=== PATIENT | female | born 1950 | race Caucasian/White ===

== ENCOUNTER 2024-10-03 14:19 | Observation (INO) ==
--- NOTE | 2024-10-03 14:39 | Emergency Department Note ---
Impression & Plan Stroke-like symptom, Amnesia ED Provider Note NAME: MARCE FRANCO AGE: 74 SEX: F : 1950 ARRIVES VIA: Walk-In INFORMANT: Patient, the patient's significant other ED PROVIDER(S): Mando To DO CHIEF COMPLAINT: Strokelike symptoms HPI: The patient is a 74-year-old female who presented to the emergency department with her significant other for an evaluation of possible strokelike symptoms. The significant other gives most of the history. He states that they were in [place] earlier today going out for lunch. He states that approximately 1 PM the patient started having problems with memory. She could not remember if they went out to eat. She actually has no memory of anything from this morning. She does have memory from last evening. She has no focal neurologic deficits. She has no slurred speech or headache. She does not take any blood thinners. She was made a stroke alert from triage by the nursing staff. ROS: See above HPI for pertinent positives & negatives. A total of 10 systems reviewed and were otherwise negative. PAST MEDICAL HISTORY: See Below PAST SURGICAL HISTORY: See Below FAMILY HISTORY: See Below SOCIAL HISTORY: See Below HOME MEDICATIONS: See Below ALLERGIES: See Below VITALS: See Below PHYSICAL EXAMINATION: GENERAL: Patient is awake alert in no acute distress patient is resting comfortably and showing no signs of anxiety EYES: The conjunctivae are clear. The pupils are round and reactive. EARS, NOSE, MOUTH AND THROAT: The nose is without any evidence of any deformity. NECK: The neck is nontender and supple. RESPIRATORY: Normal respiratory effort is noted there is no evidence of wheezing rhonchi or rales CARDIOVASCULAR: Regular rate and rhythm noted there no murmurs rubs or gallops normal S1 normal S2. GASTROINTESTINAL: The abdomen is soft. Abdomen is nontender. MUSCULOSKELETAL/EXTREMITIES: There is no evidence of gross deformity full range of motion is noted in the hips and shoulders. SKIN: There is no obvious evidence of any rash. There are no petechiae, pallor or cyanosis noted. NEUROLOGIC: Patient is awake alert and oriented to person place and situation. She is confused to time. She does not remember what she did this morning. Strength is symmetric patellar reflexes are 2+ bilaterally MEDICAL DECISION MAKING: The patient is a 74-year-old female who presented to the emergency department for confusion and amnesia. The patient was made a stroke alert in triage. On my evaluation the patient did not have any focal neurologic deficits but had repetitive questioning and did not appear to remember anything that happened today. This is a change in her mental status according to her daughter who is a physician as well as her significant other. The patient did have a similar episode approximately 4 years ago. The patient did not have any acute abnormality on CT the brain. I discussed the patient's laboratory and radiographic studies with her and her . I discussed her condition with the telestroke neurologist from [facility]. At this time no TNK was recommended. I discussed her condition with the on-call [facility] hospitalist group. They have agreed to evaluate the patient in the emergency department for further management and disposition. Triage Nursing notes reviewed. Prior medical records reviewed Vital Signs: reviewed and remarkable for elevated blood pressure. Differential diagnosis: Infection, hypoglycemia, electrolyte abnormalities, overdose, toxicologic, cardiac sources, intracerebral event, neurologic, trauma, as well as other pathologies. ER treatment provided: See below Diagnostics interpreted by me: ECG: EKG was obtained in the emergency department. My interpretation is normal sinus rhythm at 70 bpm. There is no ectopy. There is no acute ST segment abnormalities noted. This was compared to a tracing from March 11, 2024. No changes were noted. Cardiac Monitoring: An order was placed for continuous cardiac monitoring. The monitor shows a rate of 70 bpm with sinus rhythm. Laboratory studies: As stated above and show below. Imaging studies: See below. Radiographic imaging was reviewed by myself Consultation(s): I discussed this case with Dr. English who is on for the telestroke neurology group. I discussed this case with Tiffany who is on for the [facility] hospitalist group. Past Med/Surg History Problem List TIA (transient ischemic attack) Aneurysm, ascending aorta SVT (supraventricular tachycardia) Abnormal EKG Preoperative cardiovascular examination Surgical History History of bowel resection S/P removal of parathyroid gland Family History Mother Dementia Neuropathy Father Afib Sister Seizure Social History Smoking Status: Never smoker Hx Alcohol Use: Yes Alcohol Intake Frequency Comment: "occasionally" Hx Substance Use: No Preferred Language: Ghanaian marital status: Feels Safe at Home: Yes Allergies Allergies Allergy/AdvReac Type Severity Reaction Status Date / Time bee venom protein (honey bee) Allergy Severe Inner Ear Unverified 03/11/24 09:50 Problems/Dizziness doxycycline Allergy Unknown Verified 03/11/24 09:50 Penicillins Allergy Unknown Rash Verified 03/11/24 09:50 Sulfa (Sulfonamide Allergy Unknown Verified 03/11/24 09:50 Antibiotics) Home Meds Home Medications Medication Instructions Recorded Confirmed epinephrine 0.3 mg/0.3 mL 0.3 mg IM ONCE PRN Allergic 10/03/21 10/03/24 injection, auto-injector Reactions losartan 50 mg tablet 50 mg PO BID 10/22/23 10/03/24 meloxicam 15 mg tablet 15 mg PO DAILY PRN Pain 03/11/24 10/03/24 amoxicillin 875 mg-potassium 1 tab PO BID 10/03/24 10/03/24 clavulanate 125 mg tablet Results & Data (ED) Vital Signs Vital Signs - 24 hr 10/03/24 14:20 10/03/24 14:42 10/03/24 14:45 Temperature 36 C L Temperature Source Temporal Artery Scan Pulse Rate 82 76 Pulse Rate [Apical] 79 Pulse Rate from SpO2 Sensor 77 Pulse Rhythm Regular Pulse Rhythm [Apical] Regular Pulse Strength Normal Pulse Strength [Apical] Normal Respiratory Rate 20 22 16 Respiratory Effort / Characteristics Non-Labored Spontaneous Non-Labored Spontaneous Respiratory Depth Normal Normal Respiratory Pattern Regular Blood Pressure 167/92 H 124/100 Blood Pressure [Left Arm] 155/101 H Blood Pressure Mean 117 108 Blood Pressure Mean [Left Arm] 119 Blood Pressure Position Sitting Blood Pressure Position [Left Arm] Sitting Pulse Oximetry 99 96 96 Oxygen Delivery Method Room Air Room Air Sepsis Recent Fever Within 48 Hours No Sepsis New/Unexplained Change in Mental Status N/A Sepsis Action Taken by Nursing No Action Required 10/03/24 14:51 10/03/24 14:56 10/03/24 15:00 Temperature Temperature Source Pulse Rate 73 75 Pulse Rate [Apical] 67 Pulse Rate from SpO2 Sensor 73 74 Pulse Rhythm Pulse Rhythm [Apical] Regular Pulse Strength Pulse Strength [Apical] Normal Respiratory Rate 21 20 21 Respiratory Effort / Characteristics Non-Labored Spontaneous Respiratory Depth Normal Respiratory Pattern Regular Blood Pressure 155/101 H 153/92 H Blood Pressure [Left Arm] 143/90 H Blood Pressure Mean 119 112 Blood Pressure Mean [Left Arm] 107 Blood Pressure Position Blood Pressure Position [Left Arm] Sitting Pulse Oximetry 97 95 96 Oxygen Delivery Method Room Air Sepsis Recent Fever Within 48 Hours Sepsis New/Unexplained Change in Mental Status Sepsis Action Taken by Nursing 10/03/24 15:12 10/03/24 15:21 10/03/24 16:01 Temperature Temperature Source Pulse Rate 67 66 70 Pulse Rate [Apical] Pulse Rate from SpO2 Sensor 68 67 Pulse Rhythm Pulse Rhythm [Apical] Pulse Strength Pulse Strength [Apical] Respiratory Rate 19 18 Respiratory Effort / Characteristics Respiratory Depth Respiratory Pattern Blood Pressure 143/90 H 155/99 H Blood Pressure [Left Arm] Blood Pressure Mean 107 117 Blood Pressure Mean [Left Arm] Blood Pressure Position Blood Pressure Position [Left Arm] Pulse Oximetry 97 93 Oxygen Delivery Method Sepsis Recent Fever Within 48 Hours Sepsis New/Unexplained Change in Mental Status Sepsis Action Taken by Intermediate Medications Current Medication List: was personally reviewed by me Laboratory Data Attestation: I reviewed the patient's lab results. 10/03/24 14:29 10/03/24 14:29 Lab Results 10/03/24 10/03/24 10/03/24 Range/Units 14:27 14:29 14:32 WBC 8.24 (4.8-10.8) K/ul RBC 4.40 (4.20-5.40) M/uL Hgb 14.3 (12.0-16.0) g/dl POC Hgb 14.6 (12.0-16.0) g/dl Hct 42.1 (37.0-47.0) % POC Hct 43 (37-47) % MCV 95.7 (80.0-100.0) fL MCH 32.5 (25.0-34.0) pg MCHC 34.0 (32.0-36.0) g/dL RDW Std Deviation 42.6 (36.4-46.3) fL RDW Coeff of [place] 12.0 (11.5-14.5) % Plt Count 287 (130-400) K/uL MPV 8.6 L (9.4-12.4) fL Immature Gran % (Auto) 0.4 % Neut % (Auto) 65.7 % Lymph % (Auto) 23.2 % [place] % (Auto) 8.9 % Eos % (Auto) 1.3 % Baso % (Auto) 0.5 % Neut # (Auto) 5.42 (1.40-6.50) K/uL Lymph # (Auto) 1.91 (1.20-3.40) K/uL [place] # (Auto) 0.73 H (0.11-0.59) K/uL Eos # (Auto) 0.11 (0.00-0.50) K/uL Baso # (Auto) 0.04 (0.00-0.20) K/uL Immature Gran # (Auto) 0.03 (0.01-0.20) K/uL PT 10.3 (9.0-12.0) Seconds INR 0.9 (0.9-1.1) APTT 34 H (21-31) Seconds PTT Ratio 1.3 POC Sodium 141 (135-144) mmol/L Sodium 141 (136-145) mmol/L POC Potassium 3.7 (3.3-5.0) mmol/L Potassium 3.7 (3.5-5.1) mmol/L POC Chloride 103 (101-112) mmol/L Chloride 105 (98-107) mmol/L Carbon Dioxide 28 (21-32) mmol/L POC Total CO2 24 (24-31) mmol/L Anion Gap 8 (3-11) POC Anion Gap 19.0 (16-25) mmol/L POC BUN 24 H (7-18) mg/dl BUN 26 H (6-23) mg/dl Creatinine 0.78 (0.6-1.2) mg/dl POC Creatinine 0.8 (0.6-1.3) mg/dl Est Cr Clr Drug Dosing 65.0 ml/min eGFR 80.15 BUN/Creatinine Ratio 33.3 H (10-20) Glucose 91 (70-99(Fasting)) mg/dl POC Glucose 92 (70-99) mg/dl POC Glucose (other) 93 (70-99) mg/dl Calcium 9.4 (8.6-10.3) mg/dl POC Ioniz Calcium Ton 1.18 (1.12-1.32) mmol/l Magnesium 1.9 (1.7-2.4) mg/dl Total Bilirubin 0.6 (0.2-1.0) mg/dl AST 30 (13-39) U/L ALT 24 (7-52) U/L Alkaline Phosphatase 60 (34-104) U/L Troponin I High Sens 4.5 (0-14) pg/ml Total Protein 7.2 (6.0-8.3) gm/dl Albumin 4.4 (3.4-5.0) gm/dl Globulin 2.8 (2.5-4.0) gm/dl Albumin/Globulin Ratio 1.6 (0.9-2) Administered Medications Discontinued Medications Ioversol (Optiray 320 125ml) 120 ml IV ONCE ONE Stop: 10/03/24 14:45 Last Admin: 10/03/24 14:44 Dose: 120 ml Documented By: MATTHEW Lorazepam (Lorazepam 2 Mg/1 Ml Vial) 0.5 mg IV NOW STA Stop: 10/03/24 14:54 Last Admin: 10/03/24 15:05 Dose: 0.5 mg Documented By: KARSTEN Imaging Data Attestation: I personally reviewed and interpreted this imaging study as follows: My Impression: 1 chest x-ray was obtained in the emergency department. My interpretation is no free air or definite filtrate, final report below. CT the brain was obtained in the emergency department. My interpretation is no intracranial hemorrhage or mass effect, final report below. Radiologist's Impression: Chest X-Ray 10/03/24 14:26 EXAM: Radiograph of the Chest 1 View INDICATION: Stroke alert TECHNIQUE: Frontal view of the chest. COMPARISON: 11/15/2021 FINDINGS: Lungs and pleural spaces: No consolidation or pulmonary edema. No pleural effusion or pneumothorax. Heart: Shape and configuration within normal limits allowing for technique. Mediastinum: Normal contour. Bones/joints: No fracture, erosion or dislocation. Soft tissues: No abnormality noted. No radiopaque foreign body noted. Vasculature: Stable ectatic aorta. Upper abdomen: No abnormality noted. IMPRESSION: No acute cardiopulmonary disease. ACT 112: Negative or not required by law. Electronically signed by Natasha Fry 10-03-2024 3:[address] 10/03/24 14:26 EXAM: CT Head Without Intravenous Contrast INDICATION: Stroke alert TECHNIQUE: Axial computed tomography images of the head/brain without intravenous contrast. Sagittal and/or coronal reformats are provided. Sagittal and coronal reformatted images were created and reviewed. This CT exam was performed using one or more of the following dose reduction techniques: automated exposure control, adjustment of the mA and/or kV according to patient size, and/or use of iterative reconstruction technique. COMPARISON: No relevant prior studies available. FINDINGS: Limitations: None. Brain and extra-axial spaces: No abnormality noted. No hemorrhage. No significant white matter disease. No edema. No ventriculomegaly. Bones/joints: No acute changes. Soft tissues: No significant abnormality noted. Vasculature: No acute abnormality noted. Sinuses: No layering fluid in the visualized portions of the paranasal sinuses. Mastoid air cells: No mastoid effusion. Orbits: No significant abnormality noted. IMPRESSION: No abnormality noted. Findings phoned to the charge nurse at 2:50 PM 10/03/2024. ACT 112: Negative or not required by law. Electronically signed by Natasha Fry 10-03-2024 2:54 PM Head CTA 10/03/24 14:26 EXAM: CT Angiography Head and Neck With Intravenous Contrast INDICATION: Stroke alert. Short-term memory loss. Confusion. TECHNIQUE: [place]/head and neck CT angiography protocol performed with intravenous contrast. Sagittal and coronal reformatted images were created and reviewed. This CT exam was performed using one or more of the following dose reduction techniques: automated exposure control, adjustment of the mA and/or kV according to patient size, and/or use of iterative reconstruction technique. MIP reconstructed images were created and reviewed. CONTRAST: 120ml of Optiray 320 was administered intravenously. COMPARISON: None. FINDINGS: HEAD: Right anterior cerebral artery: No abnormality noted. No occlusion or significant stenosis. Anterior communicating artery is present. No aneurysm. Right middle cerebral artery: No abnormality noted. No occlusion or significant stenosis. No aneurysm. Right posterior cerebral artery: No abnormality noted. No occlusion or significant stenosis. No aneurysm. Right intracranial internal carotid artery: Very minimal calcific plaque in the intracranial right internal carotid artery. No stenosis, aneurysm or dissection. Right intracranial vertebral artery: No abnormality noted. No significant stenosis. No dissection or occlusion. Left anterior cerebral artery: No abnormality noted. No occlusion or significant stenosis. No aneurysm. Left middle cerebral artery: No abnormality noted. No occlusion or significant stenosis. No aneurysm. Left posterior cerebral artery: No abnormality noted. No occlusion or significant stenosis. No aneurysm. Left intracranial internal carotid artery: Very minimal calcific plaque in the intracranial left internal carotid artery. No stenosis, aneurysm or dissection. Left intracranial vertebral artery: No abnormality noted. No significant stenosis. No dissection or occlusion. Basilar artery: No abnormality noted. No occlusion or significant stenosis. No aneurysm. Other vasculature: No vascular malformation. NECK: Right common carotid artery: No abnormality noted. No significant stenosis. No dissection or occlusion. Right extracranial internal carotid artery: No abnormality noted. No significant stenosis. No dissection or occlusion. Right external carotid artery: No abnormality noted. No occlusion. Right extracranial vertebral artery: No abnormality noted. No significant stenosis. No dissection or occlusion. Left common carotid artery: No abnormality noted. No significant stenosis. No dissection or occlusion. Left extracranial internal carotid artery: No abnormality noted. No significant stenosis. No dissection or occlusion. Left external carotid artery: No abnormality noted. No occlusion. Left extracranial vertebral artery: No abnormality noted. No significant stenosis. No dissection or occlusion. Lung apices: No significant abnormality noted. HEAD and NECK: Bones/joints: There is mild spondylosis and uncal spurring with associated foraminal mild ventral canal stenosis at C6-C7. No acute osseous abnormality. Soft tissues: No abnormality noted. CAROTID STENOSIS REFERENCE USING NASCET CRITERIA: % ICA stenosis = (1 - narrowest ICA diameter/diameter of distal cervical ICA) x 100. Mild - <50% stenosis. Moderate - 50-69% stenosis. Severe - 70-94% stenosis. Near occlusion - 95-99% stenosis. Occluded - 100% stenosis. IMPRESSION: No angiographic abnormality in the head or neck. ACT 112: Negative or not required by law. Electronically signed by Natasha Fry 10-03-2024 2:57 PM Neck CTA 10/03/24 14:26 EXAM: CT Angiography Head and Neck With Intravenous Contrast INDICATION: Stroke alert. Short-term memory loss. Confusion. TECHNIQUE: [place] of [place]/head and neck CT angiography protocol performed with intravenous contrast. Sagittal and coronal reformatted images were created and reviewed. This CT exam was performed using one or more of the following dose reduction techniques: automated exposure control, adjustment of the mA and/or kV according to patient size, and/or use of iterative reconstruction technique. MIP reconstructed images were created and reviewed. CONTRAST: 120ml of Optiray 320 was administered intravenously. COMPARISON: None. FINDINGS: HEAD: Right anterior cerebral artery: No abnormality noted. No occlusion or significant stenosis. Anterior communicating artery is present. No aneurysm. Right middle cerebral artery: No abnormality noted. No occlusion or significant stenosis. No aneurysm. Right posterior cerebral artery: No abnormality noted. No occlusion or significant stenosis. No aneurysm. Right intracranial internal carotid artery: Very minimal calcific plaque in the intracranial right internal carotid artery. No stenosis, aneurysm or dissection. Right intracranial vertebral artery: No abnormality noted. No significant stenosis. No dissection or occlusion. Left anterior cerebral artery: No abnormality noted. No occlusion or significant stenosis. No aneurysm. Left middle cerebral artery: No abnormality noted. No occlusion or significant stenosis. No aneurysm. Left posterior cerebral artery: No abnormality noted. No occlusion or significant stenosis. No aneurysm. Left intracranial internal carotid artery: Very minimal calcific plaque in the intracranial left internal carotid artery. No stenosis, aneurysm or dissection. Left intracranial vertebral artery: No abnormality noted. No significant stenosis. No dissection or occlusion. Basilar artery: No abnormality noted. No occlusion or significant stenosis. No aneurysm. Other vasculature: No vascular malformation. NECK: Right common carotid artery: No abnormality noted. No significant stenosis. No dissection or occlusion. Right extracranial internal carotid artery: No abnormality noted. No significant stenosis. No dissection or occlusion. Right external carotid artery: No abnormality noted. No occlusion. Right extracranial vertebral artery: No abnormality noted. No significant stenosis. No dissection or occlusion. Left common carotid artery: No abnormality noted. No significant stenosis. No dissection or occlusion. Left extracranial internal carotid artery: No abnormality noted. No significant stenosis. No dissection or occlusion. Left external carotid artery: No abnormality noted. No occlusion. Left extracranial vertebral artery: No abnormality noted. No significant stenosis. No dissection or occlusion. Lung apices: No significant abnormality noted. HEAD and NECK: Bones/joints: There is mild spondylosis and uncal spurring with associated foraminal mild ventral canal stenosis at C6-C7. No acute osseous abnormality. Soft tissues: No abnormality noted. CAROTID STENOSIS REFERENCE USING NASCET CRITERIA: % ICA stenosis = (1 - narrowest ICA diameter/diameter of distal cervical ICA) x 100. Mild - <50% stenosis. Moderate - 50-69% stenosis. Severe - 70-94% stenosis. Near occlusion - 95-99% stenosis. Occluded - 100% stenosis. IMPRESSION: No angiographic abnormality in the head or neck. ACT 112: Negative or not required by law. Electronically signed by Natasha Fry 10-03-2024 2:57 PM Discharge Plan Visit Data Chief Complaint: TIA Symptoms Stated Complaint: MEMORY LOSS, EYE WEAKNESS, CONFUSION ED Provider: Mando To Prescriptions Prescriptions: No Action epinephrine 0.3 mg/0.3 mL auto-injector 0.3 mg IM ONCE PRN (Reason: Allergic Reactions) Rx Instructions: for 2 doses losartan 50 mg tablet 50 mg PO BID Rx Instructions: filled 09/10 90 day supply amoxicillin-pot clavulanate 875-125 mg tablet 1 tab PO BID Rx Instructions: filled 10/01 10 day supply meloxicam 15 mg tablet 15 mg PO DAILY PRN (Reason: Pain) Rx Instructions: last filled 05/11/24 30 day supply
[2024-10-03] MEDS: OPTIRAY 320 125ml IV ONE (14:44)
[2024-10-03 14:45] LABS: iSTAT Creatinine 0.8 mg/dl (0.6-1.3); iSTAT Hemoglobin 14.6 g/dl (12.0-16.0); iSTAT Ionized Calcium 1.18 mmol/l (1.12-1.32); iSTAT Potassium 3.7 mmol/L (3.3-5.0)
[2024-10-03 14:46] LABS: Basophils # (auto) 0.04 K/uL (0.00-0.20); Basophils % (auto) 0.5 %; Eosinophils # (auto) 0.11 K/uL (0.00-0.50); Eosinophils % (auto) 1.3 %; Hematocrit (blood only) 42.1 % (37.0-47.0); Hemoglobin 14.3 g/dl (12.0-16.0); Immature Granulocytes # (auto) 0.03 K/uL (0.01-0.20); Immature Granulocytes % (auto) 0.4 %; Lymphocytes # (auto) 1.91 K/uL (1.20-3.40); Lymphocytes % (auto) 23.2 %; Mean Corpuscular Hemoglobin 32.5 pg (25.0-34.0); Mean Corpuscular Volume 95.7 fL (80.0-100.0); Mean Platelet Volume 8.6 fL (9.4-12.4); Monocytes # (auto) 0.73 K/uL (0.11-0.59); Monocytes % (auto) 8.9 %; Neutrophils # (auto) 5.42 K/uL (1.40-6.50); Neutrophils % (auto) 65.7 %; Platelet Count 287 K/uL (130-400); RDW Standard Deviation 42.6 fL (36.4-46.3); White Blood Count 8.24 K/ul (4.8-10.8)
--- NOTE | 2024-10-03 14:54 | CT Scan Report ---
EXAM: CT Head Without Intravenous Contrast INDICATION: Stroke alert TECHNIQUE: Axial computed tomography images of the head/brain without intravenous contrast. Sagittal and/or coronal reformats are provided. Sagittal and coronal reformatted images were created and reviewed. This CT exam was performed using one or more of the following dose reduction techniques: automated exposure control, adjustment of the mA and/or kV according to patient size, and/or use of iterative reconstruction technique. COMPARISON: No relevant prior studies available. FINDINGS: Limitations: None. Brain and extra-axial spaces: No abnormality noted. No hemorrhage. No significant white matter disease. No edema. No ventriculomegaly. Bones/joints: No acute changes. Soft tissues: No significant abnormality noted. Vasculature: No acute abnormality noted. Sinuses: No layering fluid in the visualized portions of the paranasal sinuses. Mastoid air cells: No mastoid effusion. Orbits: No significant abnormality noted. IMPRESSION: No abnormality noted. Findings phoned to the charge nurse at 2:50 PM 10/03/2024. ACT 112: Negative or not required by law. Electronically signed by Natasha Fry 10-03-2024 2:54 PM
--- NOTE | 2024-10-03 14:58 | CT Scan Report ---
EXAM: CT Angiography Head and Neck With Intravenous Contrast INDICATION: Stroke alert. Short-term memory loss. Confusion. TECHNIQUE: [place] [facility]/head and neck CT angiography protocol performed with intravenous contrast. Sagittal and coronal reformatted images were created and reviewed. This CT exam was performed using one or more of the following dose reduction techniques: automated exposure control, adjustment of the mA and/or kV according to patient size, and/or use of iterative reconstruction technique. MIP reconstructed images were created and reviewed. CONTRAST: 120ml of Optiray 320 was administered intravenously. COMPARISON: None. FINDINGS: HEAD: Right anterior cerebral artery: No abnormality noted. No occlusion or significant stenosis. Anterior communicating artery is present. No aneurysm. Right middle cerebral artery: No abnormality noted. No occlusion or significant stenosis. No aneurysm. Right posterior cerebral artery: No abnormality noted. No occlusion or significant stenosis. No aneurysm. Right intracranial internal carotid artery: Very minimal calcific plaque in the intracranial right internal carotid artery. No stenosis, aneurysm or dissection. Right intracranial vertebral artery: No abnormality noted. No significant stenosis. No dissection or occlusion. Left anterior cerebral artery: No abnormality noted. No occlusion or significant stenosis. No aneurysm. Left middle cerebral artery: No abnormality noted. No occlusion or significant stenosis. No aneurysm. Left posterior cerebral artery: No abnormality noted. No occlusion or significant stenosis. No aneurysm. Left intracranial internal carotid artery: Very minimal calcific plaque in the intracranial left internal carotid artery. No stenosis, aneurysm or dissection. Left intracranial vertebral artery: No abnormality noted. No significant stenosis. No dissection or occlusion. Basilar artery: No abnormality noted. No occlusion or significant stenosis. No aneurysm. Other vasculature: No vascular malformation. NECK: Right common carotid artery: No abnormality noted. No significant stenosis. No dissection or occlusion. Right extracranial internal carotid artery: No abnormality noted. No significant stenosis. No dissection or occlusion. Right external carotid artery: No abnormality noted. No occlusion. Right extracranial vertebral artery: No abnormality noted. No significant stenosis. No dissection or occlusion. Left common carotid artery: No abnormality noted. No significant stenosis. No dissection or occlusion. Left extracranial internal carotid artery: No abnormality noted. No significant stenosis. No dissection or occlusion. Left external carotid artery: No abnormality noted. No occlusion. Left extracranial vertebral artery: No abnormality noted. No significant stenosis. No dissection or occlusion. Lung apices: No significant abnormality noted. HEAD and NECK: Bones/joints: There is mild spondylosis and uncal spurring with associated foraminal mild ventral canal stenosis at C6-C7. No acute osseous abnormality. Soft tissues: No abnormality noted. CAROTID STENOSIS REFERENCE USING NASCET CRITERIA: % ICA stenosis = (1 - narrowest ICA diameter/diameter of distal cervical ICA) x 100. Mild - <50% stenosis. Moderate - 50-69% stenosis. Severe - 70-94% stenosis. Near occlusion - 95-99% stenosis. Occluded - 100% stenosis. IMPRESSION: No angiographic abnormality in the head or neck. ACT 112: Negative or not required by law. Electronically signed by Natasha Fry 10-03-2024 2:57 PM
[2024-10-03 15:02] LABS: Albumin Globulin Ratio 1.6 (0.9-2); Albumin Level 4.4 gm/dl (3.4-5.0); BUN Creatinine Ratio 33.3 (10-20); Bilirubin,Total 0.6 mg/dl (0.2-1.0); Calcium 9.4 mg/dl (8.6-10.3); Globulin 2.8 gm/dl (2.5-4.0); Magnesium 1.9 mg/dl (1.7-2.4); Potassium 3.7 mmol/L (3.5-5.1); Total Protein 7.2 gm/dl (6.0-8.3)
[2024-10-03] MEDS: LORazepam 2 MG/1 ML VIAL IV STA (15:05)
[2024-10-03 15:08] LABS: Troponin I High Sensitivity 4.5 pg/ml (0-14)
[2024-10-03 15:32] LABS: INR 0.9 (0.9-1.1); Partial Thromboplastin Ratio 1.3; Partial Thromboplastin Time 34 Seconds (21-31); Prothrombin Time 10.3 Seconds (9.0-12.0)
--- NOTE | 2024-10-03 15:37 | XRay Report ---
EXAM: Radiograph of the Chest 1 View INDICATION: Stroke alert TECHNIQUE: Frontal view of the chest. COMPARISON: 11/15/2021 FINDINGS: Lungs and pleural spaces: No consolidation or pulmonary edema. No pleural effusion or pneumothorax. Heart: Shape and configuration within normal limits allowing for technique. Mediastinum: Normal contour. Bones/joints: No fracture, erosion or dislocation. Soft tissues: No abnormality noted. No radiopaque foreign body noted. Vasculature: Stable ectatic aorta. Upper abdomen: No abnormality noted. IMPRESSION: No acute cardiopulmonary disease. ACT 112: Negative or not required by law. Electronically signed by Natasha Fry 10-03-2024 3:30 PM
[2024-10-03] MEDS: ASPIRIN 81 MG CHEW PO STA (16:08)
[2024-10-03 16:09] LABS: Appearance Urine Clear (Clear); Bacteria Urine Automated None Seen (None Seen); Bilirubin Urine Negative (Negative); Blood Urine 2+ (Negative); Cast Urine Automated 0-2 /lpf (0-2); Color Urine Yellow; Epithelial Cell Urine Auto 0-2 /hpf (0-2); Glucose Urine UA Negative (Negative); Ketones Urine Trace (Negative); Leukocyte Esterase Urine Negative (Negative); Nitrite Urine Negative (Negative); Protein Urine Negative (Negative); RBC Urine Automated >20 /hpf (0-2); Specific Gravity Urine 1.031 (1.000-1.030); Urobilinogen Urine Negative (Negative); WBC Urine Automated 0-5 /hpf (0-5)
--- NOTE | 2024-10-03 16:23 | History & Physical Report ---
Date of Service October 03, 2024 Assessment & Plan (1) Amnesia: (2) Essential hypertension: (3) Stroke-like symptom: Plan This is a 74 y/o female with HTN, prior TIA, and other history as outlined below who presented to the ED today with acute onset of amnesia so stroke alert was called. Initial work-up in the ED including CT head/CTA head and neck was negative. Telestroke evaluation did not recommend TNK but did recommend MRI and addition of aspirin so patient was referred for admission. - Observe on med telemetry overnight - MRI brain - Neuro checks per protocol - Add aspirin as recommended - of note, pt had transient rectal bleeding when trialed three years ago; however, with second neurologic event, will cautiously retry aspirin and closely monitor for evidence of bleeding. - Consult neurology - Labs in the AM - CBC, BMP, lipid panel, A1c - Check ECHO Pt seen and reviewed with collaborating physician, Dr. Bonds. Plan of care discussed and as outlined above. Code status: full code DVT prophylaxis: Lovenox Observe in med telemetry. If MRI negative and no neurologic events, hopeful for d/c tomorrow. Alison Finney PA-C History of Present Illness Chief Complaint: "stroke alert" Primary Care Provider: Odalis Burnett This is a 74 y/o female with HTN, prior TIA, and other history as outlined below who presented to the ED today with acute onset of amnesia so stroke alert was called. History obtained from patient and her family as well as from review of outpatient neurology note from 2020. Pt apparently had the abrupt onset of amnesia around 1 pm today. She had gone to visit her father this morning who is on hospice then went out to lunch with friends, but suddenly had no recollection of anything that had happened this morning though was able to recall last night. Initially, her family noted that she also had issues with recalling the events of the last week, but this seems to be improving. She denies any other neurologic symptoms including no JOSHI, dizziness, numbness, tingling, weakness, or dysphagia. She is currently on Augmentin due to recent respiratory illness, which she started two days ago. She had an episode of N/V this morning as well. Of note, in April 2021, pt presented to [facility] with similar symptoms that started after she developed vomiting while on doxycycline for a tick bite. CT head and follow-up MRI were negative for CVA and pt was ultimately diagnosed with TIA. She followed up with neurology outpatient and was originally placed on aspirin but this caused some transient rectal bleeding so was discontinued. She has done well since then until the current episode. ECHO 07/14/21 - LVEF 60-64%, grade I LV diastolic dysfunction, mild TR, mildly enlarged proximal ascending thoracic aorta, no PFO, ASD or interarterial shunt Allergies Allergy/AdvReac Type Severity Reaction Status Date / Time bee venom protein (honey bee) Allergy Severe Inner Ear Unverified 03/11/24 09:50 Problems/Dizziness doxycycline Allergy Unknown Verified 03/11/24 09:50 Penicillins Allergy Unknown Rash Verified 03/11/24 09:50 Sulfa (Sulfonamide Allergy Unknown Verified 03/11/24 09:50 Antibiotics) Home Medications Medication Instructions Recorded Confirmed Type epinephrine 0.3 mg/0.3 mL 0.3 mg IM ONCE PRN Allergic 10/03/21 10/03/24 History injection, auto-injector Reactions losartan 50 mg tablet 50 mg PO BID 10/22/23 10/03/24 History meloxicam 15 mg tablet 15 mg PO DAILY PRN Pain 03/11/24 10/03/24 History amoxicillin 875 mg-potassium 1 tab PO BID 10/03/24 10/03/24 History clavulanate 125 mg tablet Past Med/Surg History Problem List (Updated 10/03/24 @ 16:56 by Ritika Finney PA-C) Essential hypertension Amnesia (Acute) Stroke-like symptom (Acute) Medical History (Updated 10/03/24 @ 16:56 by Ritika Finney PA-C) SVT (supraventricular tachycardia) Aneurysm, ascending aorta TIA (transient ischemic attack) Surgical History History of bowel resection S/P removal of parathyroid gland Family History Mother Dementia Neuropathy Father Afib Sister Seizure Social History Smoking Status: Never smoker Hx Alcohol Use: Yes Alcohol Intake Frequency Comment: "occasionally" Hx Substance Use: No Preferred Language: Albanian marital status: Feels Safe at Home: Yes Review of Systems Review of Systems: All systems reviewed & are unremarkable except as noted in Subjective Physical Exam Physical Exam: Please see physician addendum for details of the physical exam. Results & Data Results & Data Vital Signs (Past 12 Hours) Vital Signs Temp Pulse Pulse Resp BP BP Pulse Ox 10/03/24 16:01 70 10/03/24 15:54 71 20 154/89 H 96 10/03/24 15:45 64 20 157/73 H 95 10/03/24 15:21 66 18 155/99 H 93 10/03/24 15:12 67 19 143/90 H 97 10/03/24 15:00 75 21 153/92 H 96 10/03/24 14:56 67 20 143/90 H 95 10/03/24 14:51 73 21 155/101 H 97 10/03/24 14:45 79 16 155/101 H 96 10/03/24 14:42 76 22 124/100 96 10/03/24 14:20 36 C L 82 20 167/92 H 99 O2 Del Method 10/03/24 16:01 10/03/24 15:54 10/03/24 15:45 10/03/24 15:21 10/03/24 15:12 10/03/24 15:00 10/03/24 14:56 Room Air 10/03/24 14:51 10/03/24 14:45 Room Air 10/03/24 14:42 10/03/24 14:20 Room Air Laboratory Results Lab Results 10/03/24 10/03/24 10/03/24 Range/Units 14:27 14:29 14:32 WBC 8.24 (4.8-10.8) K/ul RBC 4.40 (4.20-5.40) M/uL Hgb 14.3 (12.0-16.0) g/dl POC Hgb 14.6 (12.0-16.0) g/dl Hct 42.1 (37.0-47.0) % POC Hct 43 (37-47) % MCV 95.7 (80.0-100.0) fL MCH 32.5 (25.0-34.0) pg MCHC 34.0 (32.0-36.0) g/dL RDW Std Deviation 42.6 (36.4-46.3) fL RDW Coeff of [place] 12.0 (11.5-14.5) % Plt Count 287 (130-400) K/uL MPV 8.6 L (9.4-12.4) fL Immature Gran % (Auto) 0.4 % Neut % (Auto) 65.7 % Lymph % (Auto) 23.2 % [place] % (Auto) 8.9 % Eos % (Auto) 1.3 % Baso % (Auto) 0.5 % Neut # (Auto) 5.42 (1.40-6.50) K/uL Lymph # (Auto) 1.91 (1.20-3.40) K/uL [place] # (Auto) 0.73 H (0.11-0.59) K/uL Eos # (Auto) 0.11 (0.00-0.50) K/uL Baso # (Auto) 0.04 (0.00-0.20) K/uL Immature Gran # (Auto) 0.03 (0.01-0.20) K/uL PT 10.3 (9.0-12.0) Seconds INR 0.9 (0.9-1.1) APTT 34 H (21-31) Seconds PTT Ratio 1.3 POC Sodium 141 (135-144) mmol/L Sodium 141 (136-145) mmol/L POC Potassium 3.7 (3.3-5.0) mmol/L Potassium 3.7 (3.5-5.1) mmol/L POC Chloride 103 (101-112) mmol/L Chloride 105 (98-107) mmol/L Carbon Dioxide 28 (21-32) mmol/L POC Total CO2 24 (24-31) mmol/L Anion Gap 8 (3-11) POC Anion Gap 19.0 (16-25) mmol/L POC BUN 24 H (7-18) mg/dl BUN 26 H (6-23) mg/dl Creatinine 0.78 (0.6-1.2) mg/dl POC Creatinine 0.8 (0.6-1.3) mg/dl Est Cr Clr Drug Dosing 65.0 ml/min eGFR 80.15 BUN/Creatinine Ratio 33.3 H (10-20) Glucose 91 (70-99(Fasting)) mg/dl POC Glucose 92 (70-99) mg/dl POC Glucose (other) 93 (70-99) mg/dl Calcium 9.4 (8.6-10.3) mg/dl POC Ioniz Calcium Ton 1.18 (1.12-1.32) mmol/l Magnesium 1.9 (1.7-2.4) mg/dl Total Bilirubin 0.6 (0.2-1.0) mg/dl AST 30 (13-39) U/L ALT 24 (7-52) U/L Alkaline Phosphatase 60 (34-104) U/L Troponin I High Sens 4.5 (0-14) pg/ml Total Protein 7.2 (6.0-8.3) gm/dl Albumin 4.4 (3.4-5.0) gm/dl Globulin 2.8 (2.5-4.0) gm/dl Albumin/Globulin Ratio 1.6 (0.9-2) Urine Color Urine Appearance (Clear) Urine pH (4.5-7.5) Ur Specific [place] (1.000-1.030) Urine Protein (Negative) Urine Glucose (UA) (Negative) Urine Ketones (Negative) Urine Blood (Negative) Urine Nitrite (Negative) Urine Bilirubin (Negative) Urine Urobilinogen (Negative) Ur Leukocyte Esterase (Negative) Urine WBC (Auto) (0-5) /hpf Urine RBC (Auto) (0-2) /hpf U Hyaline Cast (Auto) (0-2) /lpf U Epithel Cells (Auto) (0-2) /hpf Urine Bacteria (Auto) (None Seen) 10/03/24 Range/Units 15:45 WBC (4.8-10.8) K/ul RBC (4.20-5.40) M/uL Hgb (12.0-16.0) g/dl POC Hgb (12.0-16.0) g/dl Hct (37.0-47.0) % POC Hct (37-47) % MCV (80.0-100.0) fL MCH (25.0-34.0) pg MCHC (32.0-36.0) g/dL RDW Std Deviation (36.4-46.3) fL RDW Coeff of Elyse (11.5-14.5) % Plt Count (130-400) K/uL MPV (9.4-12.4) fL Immature Gran % (Auto) % Neut % (Auto) % Lymph % (Auto) % [place] % (Auto) % Eos % (Auto) % Baso % (Auto) % Neut # (Auto) (1.40-6.50) K/uL Lymph # (Auto) (1.20-3.40) K/uL [place] # (Auto) (0.11-0.59) K/uL Eos # (Auto) (0.00-0.50) K/uL Baso # (Auto) (0.00-0.20) K/uL Immature Gran # (Auto) (0.01-0.20) K/uL PT (9.0-12.0) Seconds INR (0.9-1.1) APTT (21-31) Seconds PTT Ratio POC Sodium (135-144) mmol/L Sodium (136-145) mmol/L POC Potassium (3.3-5.0) mmol/L Potassium (3.5-5.1) mmol/L POC Chloride (101-112) mmol/L Chloride (98-107) mmol/L Carbon Dioxide (21-32) mmol/L POC Total CO2 (24-31) mmol/L Anion Gap (3-11) POC Anion Gap (16-25) mmol/L POC BUN (7-18) mg/dl BUN (6-23) mg/dl Creatinine (0.6-1.2) mg/dl POC Creatinine (0.6-1.3) mg/dl Est Cr Clr Drug Dosing ml/min eGFR BUN/Creatinine Ratio (10-20) Glucose (70-99(Fasting)) mg/dl POC Glucose (70-99) mg/dl POC Glucose (other) (70-99) mg/dl Calcium (8.6-10.3) mg/dl POC Ioniz Calcium Ton (1.12-1.32) mmol/l Magnesium (1.7-2.4) mg/dl Total Bilirubin (0.2-1.0) mg/dl AST (13-39) U/L ALT (7-52) U/L Alkaline Phosphatase (34-104) U/L Troponin I High Sens (0-14) pg/ml Total Protein (6.0-8.3) gm/dl Albumin (3.4-5.0) gm/dl Globulin (2.5-4.0) gm/dl Albumin/Globulin Ratio (0.9-2) Urine Color Yellow Urine Appearance Clear (Clear) Urine pH 6.0 (4.5-7.5) Ur Specific [place] 1.031 H (1.000-1.030) Urine Protein Negative (Negative) Urine Glucose (UA) Negative (Negative) Urine Ketones Trace H (Negative) Urine Blood 2+ H (Negative) Urine Nitrite Negative (Negative) Urine Bilirubin Negative (Negative) Urine Urobilinogen Negative (Negative) Ur Leukocyte Esterase Negative (Negative) Urine WBC (Auto) 0-5 (0-5) /hpf Urine RBC (Auto) >20 H (0-2) /hpf U Hyaline Cast (Auto) 0-2 (0-2) /lpf U Epithel Cells (Auto) 0-2 (0-2) /hpf Urine Bacteria (Auto) None Seen (None Seen) Diagnostic Findings Chest X-Ray 10/03/24 14:26 EXAM: Radiograph of the Chest 1 View INDICATION: Stroke alert TECHNIQUE: Frontal view of the chest. COMPARISON: 11/15/2021 FINDINGS: Lungs and pleural spaces: No consolidation or pulmonary edema. No pleural effusion or pneumothorax. Heart: Shape and configuration within normal limits allowing for technique. Mediastinum: Normal contour. Bones/joints: No fracture, erosion or dislocation. Soft tissues: No abnormality noted. No radiopaque foreign body noted. Vasculature: Stable ectatic aorta. Upper abdomen: No abnormality noted. IMPRESSION: No acute cardiopulmonary disease. ACT 112: Negative or not required by law. Electronically signed by Natasha Fyr 10-03-2024 3:[address] 10/03/24 14:26 EXAM: CT Head Without Intravenous Contrast INDICATION: Stroke alert TECHNIQUE: Axial computed tomography images of the head/brain without intravenous contrast. Sagittal and/or coronal reformats are provided. Sagittal and coronal reformatted images were created and reviewed. This CT exam was performed using one or more of the following dose reduction techniques: automated exposure control, adjustment of the mA and/or kV according to patient size, and/or use of iterative reconstruction technique. COMPARISON: No relevant prior studies available. FINDINGS: Limitations: None. Brain and extra-axial spaces: No abnormality noted. No hemorrhage. No significant white matter disease. No edema. No ventriculomegaly. Bones/joints: No acute changes. Soft tissues: No significant abnormality noted. Vasculature: No acute abnormality noted. Sinuses: No layering fluid in the visualized portions of the paranasal sinuses. Mastoid air cells: No mastoid effusion. Orbits: No significant abnormality noted. IMPRESSION: No abnormality noted. Findings phoned to the charge nurse at 2:50 PM 10/03/2024. ACT 112: Negative or not required by law. Electronically signed by Natasha Fry 10-03-2024 2:54 PM Head CTA 10/03/24 14:26 EXAM: CT Angiography Head and Neck With Intravenous Contrast INDICATION: Stroke alert. Short-term memory loss. Confusion. TECHNIQUE: [place]/head and neck CT angiography protocol performed with intravenous contrast. Sagittal and coronal reformatted images were created and reviewed. This CT exam was performed using one or more of the following dose reduction techniques: automated exposure control, adjustment of the mA and/or kV according to patient size, and/or use of iterative reconstruction technique. MIP reconstructed images were created and reviewed. CONTRAST: 120ml of Optiray 320 was administered intravenously. COMPARISON: None. FINDINGS: HEAD: Right anterior cerebral artery: No abnormality noted. No occlusion or significant stenosis. Anterior communicating artery is present. No aneurysm. Right middle cerebral artery: No abnormality noted. No occlusion or significant stenosis. No aneurysm. Right posterior cerebral artery: No abnormality noted. No occlusion or significant stenosis. No aneurysm. Right intracranial internal carotid artery: Very minimal calcific plaque in the intracranial right internal carotid artery. No stenosis, aneurysm or dissection. Right intracranial vertebral artery: No abnormality noted. No significant stenosis. No dissection or occlusion. Left anterior cerebral artery: No abnormality noted. No occlusion or significant stenosis. No aneurysm. Left middle cerebral artery: No abnormality noted. No occlusion or significant stenosis. No aneurysm. Left posterior cerebral artery: No abnormality noted. No occlusion or significant stenosis. No aneurysm. Left intracranial internal carotid artery: Very minimal calcific plaque in the intracranial left internal carotid artery. No stenosis, aneurysm or dissection. Left intracranial vertebral artery: No abnormality noted. No significant stenosis. No dissection or occlusion. Basilar artery: No abnormality noted. No occlusion or significant stenosis. No aneurysm. Other vasculature: No vascular malformation. NECK: Right common carotid artery: No abnormality noted. No significant stenosis. No dissection or occlusion. Right extracranial internal carotid artery: No abnormality noted. No significant stenosis. No dissection or occlusion. Right external carotid artery: No abnormality noted. No occlusion. Right extracranial vertebral artery: No abnormality noted. No significant stenosis. No dissection or occlusion. Left common carotid artery: No abnormality noted. No significant stenosis. No dissection or occlusion. Left extracranial internal carotid artery: No abnormality noted. No significant stenosis. No dissection or occlusion. Left external carotid artery: No abnormality noted. No occlusion. Left extracranial vertebral artery: No abnormality noted. No significant stenosis. No dissection or occlusion. Lung apices: No significant abnormality noted. HEAD and NECK: Bones/joints: There is mild spondylosis and uncal spurring with associated foraminal mild ventral canal stenosis at C6-C7. No acute osseous abnormality. Soft tissues: No abnormality noted. CAROTID STENOSIS REFERENCE USING NASCET CRITERIA: % ICA stenosis = (1 - narrowest ICA diameter/diameter of distal cervical ICA) x 100. Mild - <50% stenosis. Moderate - 50-69% stenosis. Severe - 70-94% stenosis. Near occlusion - 95-99% stenosis. Occluded - 100% stenosis. IMPRESSION: No angiographic abnormality in the head or neck. ACT 112: Negative or not required by law. Electronically signed by Natasha Fry 10-03-2024 2:57 PM Neck CTA 10/03/24 14:26 EXAM: CT Angiography Head and Neck With Intravenous Contrast INDICATION: Stroke alert. Short-term memory loss. Confusion. TECHNIQUE: [place]/head and neck CT angiography protocol performed with intravenous contrast. Sagittal and coronal reformatted images were created and reviewed. This CT exam was performed using one or more of the following dose reduction techniques: automated exposure control, adjustment of the mA and/or kV according to patient size, and/or use of iterative reconstruction technique. MIP reconstructed images were created and reviewed. CONTRAST: 120ml of Optiray 320 was administered intravenously. COMPARISON: None. FINDINGS: HEAD: Right anterior cerebral artery: No abnormality noted. No occlusion or significant stenosis. Anterior communicating artery is present. No aneurysm. Right middle cerebral artery: No abnormality noted. No occlusion or significant stenosis. No aneurysm. Right posterior cerebral artery: No abnormality noted. No occlusion or significant stenosis. No aneurysm. Right intracranial internal carotid artery: Very minimal calcific plaque in the intracranial right internal carotid artery. No stenosis, aneurysm or dissection. Right intracranial vertebral artery: No abnormality noted. No significant stenosis. No dissection or occlusion. Left anterior cerebral artery: No abnormality noted. No occlusion or significant stenosis. No aneurysm. Left middle cerebral artery: No abnormality noted. No occlusion or significant stenosis. No aneurysm. Left posterior cerebral artery: No abnormality noted. No occlusion or significant stenosis. No aneurysm. Left intracranial internal carotid artery: Very minimal calcific plaque in the intracranial left internal carotid artery. No stenosis, aneurysm or dissection. Left intracranial vertebral artery: No abnormality noted. No significant stenosis. No dissection or occlusion. Basilar artery: No abnormality noted. No occlusion or significant stenosis. No aneurysm. Other vasculature: No vascular malformation. NECK: Right common carotid artery: No abnormality noted. No significant stenosis. No dissection or occlusion. Right extracranial internal carotid artery: No abnormality noted. No significant stenosis. No dissection or occlusion. Right external carotid artery: No abnormality noted. No occlusion. Right extracranial vertebral artery: No abnormality noted. No significant stenosis. No dissection or occlusion. Left common carotid artery: No abnormality noted. No significant stenosis. No dissection or occlusion. Left extracranial internal carotid artery: No abnormality noted. No significant stenosis. No dissection or occlusion. Left external carotid artery: No abnormality noted. No occlusion. Left extracranial vertebral artery: No abnormality noted. No significant stenosis. No dissection or occlusion. Lung apices: No significant abnormality noted. HEAD and NECK: Bones/joints: There is mild spondylosis and uncal spurring with associated foraminal mild ventral canal stenosis at C6-C7. No acute osseous abnormality. Soft tissues: No abnormality noted. CAROTID STENOSIS REFERENCE USING NASCET CRITERIA: % ICA stenosis = (1 - narrowest ICA diameter/diameter of distal cervical ICA) x 100. Mild - <50% stenosis. Moderate - 50-69% stenosis. Severe - 70-94% stenosis. Near occlusion - 95-99% stenosis. Occluded - 100% stenosis. IMPRESSION: No angiographic abnormality in the head or neck. ACT 112: Negative or not required by law. Electronically signed by Natasha Fry 10-03-2024 2:57 PM Medications Administered Discontinued Medications Aspirin (Aspirin 81 Mg Chew) 324 mg PO NOW STA Stop: 10/03/24 15:57 Last Admin: 10/03/24 16:08 Dose: 324 mg Documented By: KARSTEN Ioversol (Optiray 320 125ml) 120 ml IV ONCE ONE Stop: 10/03/24 14:45 Last Admin: 10/03/24 14:44 Dose: 120 ml Documented By: MATTHEW Lorazepam (Lorazepam 2 Mg/1 Ml Vial) 0.5 mg IV NOW STA Stop: 10/03/24 14:54 Last Admin: 10/03/24 15:05 Dose: 0.5 mg Documented By: KARSTEN Supervising Physician Co-Signing Physician Notes Attending addendum: The patient was seen and examined in emergency room in presence of the She was noted to be acutely confused this morning and cannot remember things that happened around 10 AM to 3:30 PM or so She was noted to be very anxious prior to this happening about the condition of her dad and also she has had vomiting following antibiotic with Augmentin Apparently she has had similar symptoms following doxycycline yesterday for and that resolved completely Her memory seems to be regaining to some extent during examination in the emergency room She denies any other significant symptoms and definitely no neurological symptoms On examination Lying in bed without any acute distress but has significant anxiety Afebrile and hemodynamically stable with blood pressure slight on the upper side at 154/89 Chestclear to auscultate bilaterally HeartS1, S2 regular Abdomenbenign Extremitiesno edema CNSalert, awake and oriented x 3. No focal sensory and motor deficit appreciated Her admission labs, EKG and imaging studies reviewed Has transient global amnesia/TIA without any evidence of significant findings in the lab on and/or imaging studies Teleneurology advised to have aspirin and get an MRI of the head Her blood pressure remains stable on current medications Agree with assessment plan as outlined above by Charisse Finney PA-C and take the full responsibility of care Dr Miley Bonds
[2024-10-03] MEDS: GADOBUTROL 30ML VIAL IV ONE (17:54)
--- NOTE | 2024-10-03 18:40 | Magnetic Resonance Report ---
EXAM: MR brain wo/w con CLINICAL HISTORY: 7.5mL Gadavist given existing IV by KYLER, uneventful injection, no complaints from PT, propeller scans were ran due to PT''s inability to stop coughing during scans, PT had confusion earlier today and short term memory loss, no injury to head, no cancer history, PT was a stroke alert earlier today sent to [facility] TECHNIQUE: MRI of the brain was performed with and without intravenous contrast administration (7.5mL Gadavist). COMPARISON: Reviewing CT brain and head angio same day 10/03/2024. FINDINGS: Brain Parenchyma: No recent infarction by DWI No evidence of hemorrhage. Bowen-white matter differentiation is preserved. No abnormal signal intensity lesions were identified. Post-Contrast Findings: No abnormal enhancement of the brain parenchyma or meninges. Ventricles and Sulci: Ventricular system is within normal limits without evidence of hydrocephalus. Sulci and cisternal spaces are age-appropriate. Brainstem and Cerebellum: Normal appearance of the brainstem and cerebellum without focal lesions or abnormal enhancement. Vessels: Intracranial vessels appear normal without evidence of vascular malformations or aneurysms. Skull and Calvarium: No evidence of skull vault lesions or abnormal marrow signal within the calvarium. IMPRESSION: MRI of the brain with and without contrast: 1. Normal brain parenchyma and structures. 2. No evidence of acute intracranial pathology or abnormal contrast enhancement. 3. No changes on interval. Electronically signed by Luca Live 10-03-2024 6:40 PM
--- NOTE | 2024-10-03 19:38 | Electrocardiogram Report ---
Test Reason : Blood Pressure : */* mmHG Vent. Rate : 70 BPM Atrial Rate : 70 BPM P-R Int : 178 ms QRS Dur : 76 ms QT Int : 404 ms P-R-T Axes : 66 6 17 degrees QTcB Int : 436 ms Normal sinus rhythm When compared with ECG of 11-Mar-2024 08:42, Premature supraventricular complexes are no longer Present Confirmed by Mahesh Torres ([id number]) on 10/03/2024 7:37:54 PM Referred By: REFERRED SELF Confirmed By: Mahesh Torres
--- OUTSIDE RECORDS SUMMARY | 2024-10-03 19:49 | External Medical Summary | Summary of Care ---
Author Name Unknown Organization [facility] Address [address] [facility] [place] [address] Phone [phone] Care Team Providers Care Slab Puller Name Role Phone Roland Lopez MD Primary Care Provider Reason for Visit * Reason Comments NEW PATIENT Pt here to establish with our office. No concerns voiced today. Encounter Details Date Type Department Care Team (Late st Contact Info) Description 05/11/2024 4:40 PM EDT Office Visit [facility] [address] [place] [address] Roland Lopez MD [address] [place] [address] Risk and functional assessment*; Essential hypertension; Dilation of thoracic aorta (HCC); Gastroesophageal reflux disease with esophagitis without hemorrhage; Pseudopolyposis of colon with rectal bleeding, unspecified part of colon (HCC); Mixed dyslipidemia Allergies Active Allergy Reactions Criticality Noted Date Comments Penicillins Rash 05/22/2021 Sulfa Antibiotics 05/22/2021 documented as of this encounter (statuses as of 05/11/2024) Medications Medication Sig Dispensed Refills Start Date End Date Status Tretinoin 0.025 % External Cream Apply topically to affected area at bedtime. 04/22/2024 Active Methylcellulose (Laxative) Oral Powder (Citrucel) Take 2 g by mouth in the morning and 2 g before bedtime. Active Ciprofloxacin HCl 500 MG Oral Tablet (Cipro) Take 1 Tablet by mouth in the morning and 1 Tablet before bedtime. 14 Tablet 05/11/2024 Active metroNIDAZOLE 500 MG Oral Tablet (Flagyl) Take 1 Tablet by mouth in the morning and 1 Tablet at noon and 1 Tablet before bedtime. 21 Tablet 05/11/2024 Active Losartan Potassium 50 MG Oral Tablet (Cozaar) Take 1 Tablet by mouth in the morning and 1 Tablet before bedtime. 180 Tablet 3 05/11/2024 Active Pantoprazole Sodium 40 MG Oral Tablet Delayed Release (Protonix) Take 1 Tablet by mouth daily as needed (dyspepsia). 30 Tablet 2 05/11/2024 Active Meloxicam 15 MG Oral Tablet (Mobic) Take 1 Tablet by mouth daily as needed for Pain, Severe. 30 Tablet 2 05/11/2024 Active Pantoprazole Sodium 40 MG Oral Tablet Delayed Release (Protonix) Take 1 Tablet by mouth in the morning. 03/01/2021 05/11/2024 Discontinued (Refill) metroNIDAZOLE 500 MG Oral Tablet (Flagyl) take 1 tablet by mouth twice a day for 7 days 03/19/2024 05/11/2024 Discontinued (Refill) Ciprofloxacin HCl 500 MG Oral Tablet (Cipro) take 1 tablet by mouth twice a day for 7 days 03/22/2024 05/11/2024 Discontinued (Refill) Losartan Potassium 50 MG Oral Tablet (Cozaar) Take 1 Tablet by mouth in the morning and 1 Tablet before bedtime. 05/11/2024 Discontinued (Refill) Meloxicam 15 MG Oral Tablet (Mobic) Take 1 Tablet by mouth daily as needed. 02/29/2024 05/11/2024 Discontinued (Refill) documented as of this encounter (statuses as of 05/11/2024) Active Problems Problem Noted Date Diagnosed Date 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 Essential hypertension 05/11/2024 HTN (hypertension) 05/11/2024 documented as of this encounter (statuses as of 05/11/2024) Resolved Problems Problem Noted Date Diagnosed Date Resolved Date Sciatica 05/11/2024 05/11/2024 Sprain of neck 05/11/2024 05/11/2024 Chronic low back pain 10/10/20162023 Acquired trigger finger 09/14/2016 07/0 11/2023 Localized adiposity of abdomen 03/26/2016 05/11/2024 documented as of this encounter (statuses as of 05/11/2024) Immunizations Name Administration Dates Next Due Pneumococcal Conjugate Vacc, 13 Valent (Prevnar) 01/22/2019 Pneumococcal Polysaccharide PPV23 (Pneumovax) Seasonal Influenza, Quadrivalent Hd (Fluzone Hd) 07/27/2023 TDAP (age 10 and older)(Boostrix) 07/05/2021 documented as of this encounter Social History Tobacco Use Types Packs/Day Years Used Date Smoking Tobacco: Never Passive Smoke Exposure: Never Smokeless Tobacco: Never Tobacco Cessation:Counseling Given: Not Answered Alcohol Use Standard Drinks/Week Comments Yes 7 (1 standard drink = 0.6 oz pur e alcohol) Sex and Gender Information Value Date Recorded Sex Assigned at Female 05/11/2024 4:46 PM EDT Gender Identity Female 05/11/2024 4:46 PM EDT Sexual Orientation Straight 05/11/2024 4: 46 PM EDT Job Start Date Occupation Industry Not on file Not on file Not on file documented as of this encounter Last Filed Vital Signs Vital Sign Reading Time Taken Comments Blood Pressure 122/90 05/11/2024 4:56 PM EDT Pulse 67 05/11/2024 4:56 PM EDT Temperature 36.5 C (97.7 F) 05/11/2024 4:56 PM ED T Respiratory Rate 16 05/11/2024 4:56 PM EDT Oxygen Saturation 97% 05/11/2024 4:56 PM EDT Inhaled Oxygen Concentration - - Weight 72.9 kg (160 lb 12.8 oz) 05/11/2024 4:56 PM EDT Height 164.3 cm (5' 4.69") 05/11/2024 4:56 PM ED T Body Mass Index 27.02 05/11/2024 4:56 PM EDT documented in this encounter Patient Instructions * Patient Instructions* Leora Benjamin LPN - 05/11/2024 4:56 PM EDT Patient Instructions - Fall Prevention (This education is for all patients over 65 regardless of symptoms) Remember to take your current medications as prescribed. In order to prevent falls, you are encouraged to: Exercise Utilize assistive/adaptive devices Avoid multifocal lenses when walking Avoid hazards in home Maintain a regular toileting schedule Any questions please contact our office. Preventing Falls in the Home (This education is for all patients over 65 regardless of symptoms) As you get older, falls are more likely. Thats because your reaction time slows. Your muscles and joints may also get stiffer, making them less flexible. Illness, medications, and vision changes can also affect your balance. A fall could leave you unable to live on your own. To make your home safer, follow these tips: Floors Put nonskid pads under area rugs Remove throw rugs Replace worn floor coverings Tack carpets firmly to each step on carpeted stairs. Put nonskid strips on the edges of uncarpeted stairs Keep floors and stairs free of clutter and cords Arrange furniture so there are clear pathways Clean up any spills right away Bathrooms Install grab bars in the tub or shower Apply nonskid strips or put a nonskid rubber mat in the tub or shower Sit on a bath chair to bathe Use bathmats with nonskid backing Lighting Keep a flashlight in each room Put a nightlight along the pathway between the bedroom and the bathroom [employer] Patient Education Copyright 2008 - 2010 [employer] except where otherwise noted Preventing Falls: Exercises to Improve Balance, Flexibility, Strength, and Staying Power (This education is for all patients over 65 regardless of symptoms) Certain types of exercises may help make you less likely to fall. Try the ones below. Or do other exercises that your healthcare provider suggests. Depending on your health, you may need to start slowly. Dont let that stop you. Even small amounts of exercise can help you. Be sure to talk to yourhealthcare provider before starting any exercise program. Improve Balance Many types of exercise can help improve balance. Nestor chi and yoga are good examples. Heres another one to try. You can do it anytime and almost anywhere. Stand next to a counter or solid support. Push yourself up onto your tiptoes. Hold for 5 seconds. If you start to lose your balance, hold on to the counter. Rest and repeat 5 times. Work up to holding for 20 to 30 seconds, if you can. Increase Flexibility Being more flexible makes it easier for you to move around safely. Try exercises like the seated hamstring stretch. Sit in a chair and put one foot on a stool. Straighten your leg and reach with both hands down either side of your leg. Reach as far down your leg as you can. Hold for about 20 seconds. Go back to the starting position. Then repeat 5 times. Switch legs. Build Strength Resistance exercises help build strength. You can do them without equipment. Or you can use weights, elastic bands, or special machines. One such exercise is called the biceps curl. You can hold a 1 pound weight or even a can of soup. Do this exercise at least 3 times a week. Strive for everyday. Sit up straight in a chair. Keep your elbow close to your body and your wrist straight. Bend your arm, moving your hand up to your shoulder. Then slowly lower your arm. Repeat 5 times. Switch to the other arm. Build Your Staying Power Aerobic exercises make your heart and lungs stronger so you can keep moving longer. Walking and swimming are two of the best types of exercises you can do. Using a stationary bike is great, too. Find an aerobic exercise that you enjoy. Start slowly and build up. Even 5 minutes is helpful. Aimfor a goal of 30 minutes, at least 3 times a week. You dont have to do 30 minutes in one session. Break it up and walk a little throughout the day. More Helpful Tips Start easy. Slowly work up to doing more. Talk with your healthcare provider about the best exercises for you. Call senior centers or health clubs about exercise programs. If needed, have a family member watch you walk every so often to check your stability. Exercise with a friend. Choose an activity you both enjoy. Try exercises that you can do anytime, anywhere. Here are two examples. Have someone with you when you first try these: Practice walking by placing one foot right in front of the other. Stand up and sit down 10 times. Repeat this throughout the day. [employer] Patient Education Copyright 2008 - 2010 [employer] except where otherwise noted. Preventing Falls: Moving Safely Using a Cane or Walker (This education is for all patients over 65 regardless of symptoms) Keep the cane away from your feet so you dont trip. A walking aid, such as a cane or walker, can help you stay more independent and avoid falls. Remember to keep your walking aid within easy reach when youre in a chair or in bed. And learn how to use it safely so you dont injure yourself. Using a Cane If you have a stronger side, hold the cane on that side. Get your balance. Move the cane and your weaker leg forward. Support your weight on both the cane and your weaker side. Step with your stronger leg. Start again from step 1. If youre using a folding walker, be sure you know how to lock it open. Check that its locked open before each use. Using a Walker Roll the walker (or lift it, if youre using one without wheels) forward about 12 inches. Step forward with your weaker leg first. Use the walker to help keep your balance. Bring your other foot forward to the center of the walker. Start again from step 1. Helpful Tips Check with your healthcare provider about the right walking aid to use. Ask about a walker with a seat attached. Check the tips of your cane or walker to make sure they have nonskid covers. Move slowly from room to room. Dont sharp. Sit down to get dressed. Use a kandice pack or backpack to keep your hands free. Get help for jobs that mean climbing, even on a stepstool. [employer] Patient Education Copyright 2008 - 2010 [employer] except where otherwise noted. Urinary Incontinence Plan of Care Documentation: (This education is for all patients over 65 regardless of symptoms) Current medications reconciled. Patient encouraged to: Practice kegal exercises Provide education materials Use the restroom every 2 hours throughout the day Limit caffeine, alcohol, spicy foods and acidic foods Keep a bladder diary Limit fluid intake 3-4 hours before bed Lose weight Prevent constipation Take fluid pills at a time when you can get to the bathroom quickly Control sugar better if diabetic Limit fluid intake to 60 oz. per day Wear support stockings (TEDs)if you have edema Leora Benjamin LPN 05/11/2024 Kegel Exercises Kegel exercises dont require special clothing or equipment. Theyre easy to learn and simple to do. And if you do them right, no one can tell youre doing them, so they can be done almost anywhere. Your doctor, nurse, or physical therapist can answer any questions you have and help you get started. A Weak Pelvic Floor The pelvic floor muscles may weaken due to aging, and vaginal childbirth, injury, surgery, chronic cough, or lack of exercise. If the pelvic floor is weak, your bladder and other pelvic organs may sag out of place. The urethra may also open too easily and allow urine to leak out. Kegel exercises can help you strengthen your pelvic floor muscles so they can better support the pelvic organs and control urine flow. How Kegel Exercises Are Done Try each of the Kegel exercises described below. When youre doing them, try not to move your leg, buttock, or stomach muscles. While youre urinating, try to stop the flow of urine. Start and stop it as often as you can. Contract as if you were stopping your urine stream, but do it when youre not urinating. Tighten your rectum as if trying not to pass gas. Contract your anus, but dont move your buttocks. Helpful Hints Do your Kegels as often as you can. The more you do them, the faster youll feel the results. Pick an activity you do often as a reminder. For instance, do your Kegels every time you sit down. Tighten your pelvic floor before you sneeze, get up from a chair, cough, laugh, or lift. This protects your pelvic floor from injury and can help prevent urine leakage. Try to hold each Kegel for a slow count to five. You probably wont be able to hold them for thatlong at first, but keep practicing. It will get easier as your pelvic floor gets stronger. Eventually, special weights that you place in your vagina may be recommended to help make your Kegels even more effective. [employer] Patient Education Copyright 2009 - 2010 [employer] except where otherwise noted. Here are some helpful tips for your urinary incontinence: (This education is for all patients over 65 regardless of symptoms) Practice Kegel exercises Use the restroom every 2 hours throughout the day Limit caffeine, alcohol, spicy foods, and acidic foods Keep a bladder diary Limit fluid intake 3-4 hours before bed Lose weight Prevent constipation Take fluid pills at a time when can get to the bathroom quickly Control sugar better if diabetic Limit fluid intake to 60 oz. per day Any questions, please feel free to contact our office. documented in this encounter Progress Notes * Roland Lopez MD - 05/11/2024 5:14 PM EDT Images from the original note were not included. History of Present Illness Leslie Baker is a 73 year old female that presents for NEW PATIENT (Pt here to establish with our office. No concerns voiced today. ) Patient is well known to me from my previous practice and presents today to establish care with harvinder and continue the doctor-patient relationship. Patient has no acute issues. Previously had some issues with bowel resection and had a f/u colo recently htat was fine. Physical Exam BP 122/90 (BP Site: Left Arm, BP Position: Sitting, BP Cuff Size: Regular) | Pulse 67 | Temp 36.5 C (97.7 F) (Tympanic) | Resp 16 | Ht 1.643 m (5' 4.69") | Wt 72.9 kg (160 lb 12.8 oz) | SpO2 97% | BMI 27.02 kg/m | BSA 1.82 m AAOx3 Normal affect NCAT/ PERRL Neck supple Throat clear RRR Lungs CTABL Abd soft +BS Ext warm and well perfused No gross neuro deficits Normal gait I have reviewed most recent labs None Assessment and Plan Essential hypertension - cont losartan BID. Dilation of thoracic aorta (HCC) - seen previously Gastroesophageal reflux disease with esophagitis without hemorrhage - takes the PPI rarely. Pseudopolyposis of colon with rectal bleeding, unspecified part of colon (HCC) - no recent bleeding. Previously saw Dr Fraire in [place]. Recently had colo that was ok. UTD. Wrap-Up 1 year prn sooner Time: I spent a total of 30-39 minutes (exact time 35 mins) on the date of service in preparation, delivery, and documentation of the care provided to Leslie Baker excluding any time spent in the performanceof separately billed services. documented in this encounter Plan of Treatment Scheduled Orders Name Type Priority Associated Diagnoses Orde r Schedule LIPID PANEL WITH DIRECT LDL IF TG IS HIGH Lab Routine Mixed dyslipidemia Expected: 05/11/2024, Expires: 05/11/2025 COMPREHENSIVE METABOLIC PANEL Lab Routine Essential hypertension Expected: 05/11/2024 (Approximate), Expires: 05/11/2025 CBC Lab Routine Essential hypertension Expected: 05/11/2024 (Approximate), Expires: 05/11/2025 ALBUMIN / CREATININE RATIO, URINE Lab Routine Essential hypertension Expected: 05/11/2024 (Approximate), Expires: 05/11/2025 Health Maintenance Due Date Last Done Comments Albumin/Creatinine Ratio 1969 Cologuard 1996 Fecal Occult Blood Test 1996 Sigmoidoscopy 1996 GFR 07/15/2023 07/15/2022, 09/0 01/2022, 07/13/2022, Additional history exists Influenza Vaccine (FLU shot) (#1) 2024 07/27/2023 Mammogram 11/20/2024 11/20/2023 (Done elsewhere), 12/12/2020, 03/29/2020, Additional history exists Depression Screening 05/11/2025 05/11/2024 DXA Scan 12/16/2025 12/16/2018 Lipid Panel 05/03/2028 05/03/2023, 12/15/2019 DTaP,Tdap,and Td Vaccines (2 - Td or Tdap) 07/05/2031 07/05/2021 Colonoscopy 04/28/2034 04/28/2024 (Done elsewhere) Colorectal Cancer Screening 04/28/2034 Pneumococcal Vaccine: 65+ Years Completed 05/12/2020, 01/22/2019 COVID-19 Vaccine Discontinued GARDASIL-HPV IMMUNIZATION SERIES Aged Out No longer eligible based on patient's age to complete this topic Hepatitis B Aged Out No longer eligi ble based on patient's age to complete this topic Hepatitis C Screening Discontinued MENINGOCOCCAL (MENACTRA/MENVEO) Aged Out No longer eligible based on patient's age to complete this topic Zoster Vaccines Discontinued documented as of this encounter Medical Devices Not on filedocumented as of this encounter Visit Diagnoses Diagnosis Risk and functional assessment- Primary Screening for unspecified condition Essential hypertension Unspecified essential hypertension Dilation of thoracic aorta (HCC) Thoracic aortic ectasia Gastroesophageal reflux disease with esophagitis without hemorrhage Pseudopolyposis of colon with rectal bleeding, unspecified part of colon (HCC) Mixed dyslipidemia Mixed hyperlipidemia documented in this encounter Care Teams Slab Puller Relationship Specialty Start Date End Date Roland Lopez MD [address] [place] [address] PCP - General Family Medicine 05/11/24 documented as of this encounter
--- OUTSIDE RECORDS SUMMARY | 2024-10-03 19:49 | External Medical Summary ---
Author Name Unknown Address Unknown Organization [id number]:[facility] [place] [address] [place] [address] Laboratory Report Ordering Provider Test Date Status BEATRICE RENDON 06/04/2024 09:47:58 Final Normal: <30 mg/g creatinine< br/>High: 30-300 mg/g creatinine
Very High: >300 mg/g creatinine
Nephrotic: >2200 mg/g creatinine Observation Date Value Abnormality Reference (Units) Status Albumin, Urine 06/04/2024 09:47:58 <1.20 (mg/dL) Final Creatinine, Urine 06/04/2024 09:47:58 39 (mg/dL) Final ALBUMIN/CREATININE RATIO, HIDE 06/04/2024 09:47:58 Uninterpretable Albumin/Creatinine ratio due to very low albumin and creatinine values. <30 (mg/g Creat) Final Performing Location [facility] [place] [address] [place] [address]
--- OUTSIDE RECORDS SUMMARY | 2024-10-03 19:49 | External Medical Summary | Summary of Care ---
Author Name Unknown Organization [facility] Address [address] [facility] [place] [address] Phone [phone] Care Team Providers Care Plasma Specialist Name Role Phone Roland Lopez MD Primary Care Provider Encounter Details Date Type Department Care Team (Late st Contact Info) Description 05/22/2024 Orders Only Family Practice [facility] [address] [place] [address] Roland Lopez MD [address] [place] [address] Allergies Active Allergy Reactions Criticality Noted Date Comments Penicillins Rash 05/22/2021 Sulfa Antibiotics 05/22/2021 documented as of this encounter (statuses as of 05/22/2024) Medications Medication Sig Dispensed Refills Start Date [...] Pain, Severe. 30 Tablet 2 05/11/2024 Active documented as of this encounter (statuses as of 05/22/2024) Active Problems Problem Noted Date Diagnosed Date 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 Essential hypertension 05/11/2024 HTN (hypertension) 05/11/2024 documented as of this encounter (statuses as of 05/22/2024) Resolved Problems Problem Noted Date Diagnosed Date Resolved Date Sciatica 05/11/2024 05/11/2024 Sprain of neck 05/11/2024 05/11/2024 Chronic low back pain 10/10/20162023 Acquired trigger finger 09/14/2016 07/0 11/2023 Localized adiposity of abdomen 03/26/2016 05/11/2024 documented as of this encounter (statuses as of 05/22/2024) Immunizations Name Administration Dates Next Due Pneumococcal Conjugate Vacc, 13 Valent (Prevnar) 01/22/2019 Pneumococcal Polysaccharide PPV23 (Pneumovax) Seasonal Influenza, Quadrivalent Hd (Fluzone Hd) 07/27/2023 TDAP (age 10 and older)(Boostrix) 07/05/2021 documented as of this encounter Social History Tobacco Use Types Packs/Day Years Used Date Smoking Tobacco: Never Passive Smoke Exposure: Never Smokeless Tobacco: Never Alcohol Use Standard Drinks/Week Comments Yes 7 [...] on file documented as of this encounter Plan of Treatment Upcoming Encounters Date Type Department Care Team (Late st Contact Info) Description 05/18/2025 10:20 AM EDT Office Visit Family [address] [place] [address] Roland Lopez MD [address] [place] [address] Health Maintenance Due Date Last Done Comments Albumin/Creatinine Ratio 1969 Cologuard 1996 Fecal Occult Blood Test 1996 Sigmoidoscopy 1996 GFR 07/15/2023 07/15/2022, 01/2022, 07/13/2022, Additional history exists Influenza Vaccine (FLU shot) (#1) 2024 07/27/2023 Mammogram 11/20/2024 11/20/2023 (Done elsewhere), 12/12/2020, 03/29/2020, Additional history exists Depression Screening 05/11/2025 05/11/2024 DXA Scan 12/16/2025 12/16/2018 Lipid Panel 05/03/2028 05/03/2023, 12/15/2019 DTaP,Tdap,and Td Vaccines (2 - Td or Tdap) 07/05/2031 07/05/2021 Colonoscopy 05/22/2034 04/28/2024, 04/11 (Done elsewhere) Colorectal Cancer Screening 05/22/2034 Pneumococcal Vaccine: 65+ Years Completed 05/12/2020, 01/22/2019 COVID-19 Vaccine Discontinued HPV (Gardasil) Vaccine Aged Out No lo nger eligible based on patient's age to complete this topic Hepatitis B Vaccine Aged Out No longe r eligible based on patient's age to complete this topic Hepatitis C Screening Discontinued MENINGOCOCCAL (MENACTRA/MENVEO) Aged Out No longer eligible based on patient's age to complete this topic Zoster Vaccines Discontinued documented as of this encounter Medical Devices Not on filedocumented as of this encounter Procedures Procedure Name Priority Date/Time Associated Diagnosis Comments COLONOSCOPY, OUTSIDE PROCEDURE Routine 04/28/2024 documented in this encounter Results * COLONOSCOPY, OUTSIDE PROCEDURE (04/28/2024) 04/28/2024 History Per Patient GASTR[facility]IDE [facility] (SEE SCANNED REPORT) documented in this encounter Care Teams Plasma Specialist Relationship Specialty Start Date End Date Roland Lopez MD [address] [place] [address] PCP - General Family Medicine 05/11/24 documented as of this encounter
--- OUTSIDE RECORDS SUMMARY | 2024-10-03 19:49 | External Medical Summary | Summary of Care ---
Author Name Unknown Organization [facility] Address [address] [facility] [place] [address] Phone [phone] Care Team Providers Care Animal Husbandry Manager Name Role Phone Roland Lopez MD Primary Care Provider Reason for Visit * Reason Onset Date Comments Health Maintenance 05/21/2024 Encounter Details Date Type Department Care Team (Late st Contact Info) Description 05/21/2024 Telephone Family Practice [facility] [address] [place] [address] Roland Lopez MD [address] [place] [address] Health Maintenance Allergies Active Allergy Reactions Criticality Noted Date Comments Penicillins Rash 05/22/2021 Sulfa Antibiotics 05/22/2021 documented as of this encounter (statuses as of 05/21/2024) Medications Medication Sig Dispensed Refills Start Date [...] as of this encounter (statuses as of 05/21/2024) Active Problems Problem Noted Date Diagnosed Date 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 Essential hypertension 05/11/2024 HTN (hypertension) 05/11/2024 documented as of this encounter (statuses as of 05/21/2024) Resolved Problems Problem Noted Date Diagnosed Date Resolved Date Sciatica 05/11/2024 05/11/2024 Sprain of neck 05/11/2024 05/11/2024 Chronic low back pain 10/10/20162023 Acquired trigger finger 09/14/2016 07/0 11/2023 Localized adiposity of abdomen 03/26/2016 05/11/2024 documented as of this encounter (statuses as of 05/21/2024) Immunizations Name Administration Dates Next Due Pneumococcal [...] on file documented as of this encounter Miscellaneous Notes * Telephone Encounter - Rosana Mckeon LPN - 05/21/2024 1:38 PM EDT Appt scheduled * Telephone Encounter - Rosana Mckeon LPN - 05/21/2024 9:28 AM EDT Care Gaps Comprehensive Care Outreach Last Office/Telemedicine Visit: 05/11/2024 (in office), Visit date not found (telemedicine) Next Office Visit: Visit date not found Hemoglobin AIC Results: No results found for: "HEMOGLOBIN A1C" BP Readings from Last 1 Encounters: 05/11/24 122/90 Reviewed Health Maintenance below: Health Maintenance Topic Date Due Albumin/Creatinine Ratio Never done GFR 07/15/2023 Influenza Vaccine (FLU shot) (1) 07/12/2024 Mammogram 11/20/2024 Depression Screening 05/11/2025 DXA Scan 12/16/2025 Ov may? Labs already ordered Care Gap Outreach Action Taken: Left message 1 documented in this encounter Plan of Treatment Upcoming Encounters Date Type Department Care Team (Late st Contact Info) Description 05/18/2025 10:20 AM EDT Office Visit Family Practice [facility] [address] [place] [address] Roland Lopez MD [address] [address] Health Maintenance Due Date Last Done Comments [...] Not on filedocumented as of this encounter Care Teams Animal Husbandry Manager Relationship Specialty Start Date End Date Roland Lopez MD [address] [facility] [place] [address] PCP - General Family Medicine 05/11/24 documented as of this encounter
--- OUTSIDE RECORDS SUMMARY | 2024-10-03 19:49 | External Medical Summary | Summary of Care ---
Author Name Unknown Organization [facility] Address [address] [facility] [place] [address] Phone [phone] Care Team Providers Care Software Test Engineer Name Role Phone Roland Lopez MD Primary Care Provider Encounter Details Date Type Department Care Team (Late st Contact Info) Description 06/01/2024 Orders Only Family Practice [facility] [address] [place] [address] Roland Lopez MD [address] [place] [address] Allergies Active Allergy Reactions Criticality Noted Date Comments Penicillins Rash 05/22/2021 Sulfa Antibiotics 05/22/2021 documented as of this encounter (statuses as of 06/01/2024) Medications Medication Sig Dispensed Refills Start Date [...] as of this encounter (statuses as of 06/01/2024) Active Problems Problem Noted Date Diagnosed Date 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 Essential hypertension 05/11/2024 HTN (hypertension) 05/11/2024 documented as of this encounter (statuses as of 06/01/2024) Resolved Problems Problem Noted Date Diagnosed Date Resolved Date Sciatica 05/11/2024 05/11/2024 Sprain of neck 05/11/2024 05/11/2024 Chronic low back pain 10/10/20162023 Acquired trigger finger 09/14/2016 07/0 11/2023 Localized adiposity of abdomen 03/26/2016 05/11/2024 documented as of this encounter (statuses as of 06/01/2024) Immunizations Name Administration Dates Next Due Pneumococcal [...] 05/18/2025 10:20 AM EDT Office Visit Family [address] [place] [address] Roland Lopez MD [address] [place] [address] Health Maintenance Due Date Last Done Comments Albumin/Creatinine Ratio 1969 Cologuard 1996 Fecal Occult Blood Test 1996 Sigmoidoscopy 1996 GFR 07/15/2023 07/15/2022, 01/2022, 07/13/2022, Additional history exists Influenza Vaccine (FLU shot) (#1) 2024 07/27/2023 Depression Screening 05/11/2025 05/11/2024 Mammogram 06/01/2025 11/20/2023 (Done elsewhere), 10/14/2023, 12/12/2020, Additional history exists DXA Scan 12/16/2025 12/16/2018 Lipid Panel 05/03/2028 05/03/2023, 12/15/2019 DTaP,Tdap,and Td Vaccines (2 - Td or Tdap) 07/05/2031 07/05/2021 Colonoscopy 04/28/2034 04/28/2024, 04/11 (Done elsewhere) Colorectal Cancer Screening 04/28/2034 Pneumococcal [...] Procedure Name Priority Date/Time Associated Diagnosis Comments MAMMOGRAM SCREENING BILATERAL Routine 10/14/2023 documented in this encounter Results * MAMMOGRAM SCREENING BILATERAL (10/14/2023) Anatomical Region Laterality Modality Breast Bilateral Other 10/14/2023 History Per Patient RAD MAMMOGRAPHY documented in this encounter Care Teams Software Test Engineer Relationship Specialty Start Date End Date Roland Lopez MD [address] [place] [address] PCP - General Family Medicine 05/11/24 documented as of this encounter
--- OUTSIDE RECORDS SUMMARY | 2024-10-03 19:49 | External Medical Summary | Summary of Care ---
Author Name Unknown Organization [facility] Address [address] [facility] [place] [address] Phone [phone] Care Team Providers Care Travel Pt Name Role Phone Roland Lopez MD Primary Care Provider Encounter Details Date Type Department Care Team (Late st Contact Info) Description 05/14/2024 Orders Only PATIENT PORTAL DO NOT DELETE THIS DEPT USED BY [place] [address] Allergies Active Allergy Reactions Criticality Noted Date Comments Penicillins Rash 05/22/2021 Sulfa Antibiotics 05/22/2021 documented as of this encounter (statuses as of 05/14/2024) Medications Medication Sig Dispensed Refills Start Date [...] as of this encounter (statuses as of 05/14/2024) Active Problems Problem Noted Date Diagnosed Date 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 Essential hypertension 05/11/2024 HTN (hypertension) 05/11/2024 documented as of this encounter (statuses as of 05/14/2024) Resolved Problems Problem Noted Date Diagnosed Date Resolved Date Sciatica 05/11/2024 05/11/2024 Sprain of neck 05/11/2024 05/11/2024 Chronic low back pain 10/10/20162023 Acquired trigger finger 09/14/2016 0711/2023 Localized adiposity of abdomen 03/26/2016 05/11/2024 documented as of this encounter (statuses as of 05/14/2024) Immunizations Name Administration Dates Next Due Pneumococcal [...] as of this encounter Plan of Treatment Health Maintenance Due Date Last Done Comments [...] filedocumented as of this encounter Care Teams Travel Pt Relationship Specialty Start Date End Date Roland Lopez MD [address] [place] [address] PCP - General Family Medicine 05/11/24 documented as of this encounter
--- OUTSIDE RECORDS SUMMARY | 2024-10-03 19:49 | External Medical Summary | Summary of Care ---
Author Name Unknown Organization [facility] Address [address] [facility] [address] Phone [phone] Care Team Providers Care Lead Simulation Modeling Engineer Name Role Phone Roland Lopez MD Primary Care Provider Reason for Visit * Reason Comments Outpatient Testing Encounter Details Date Type Department Care Team (Late st Contact Info) Description 06/04/2024 9:40 AM EDT Laboratory Laboratory, [facility] [address] [facility] [address] [employer] [facility] [address] Mixed dyslipidemia; Essential hypertension Allergies Active Allergy Reactions Criticality Noted Date Comments Penicillins Rash 05/22/2021 Sulfa Antibiotics 05/22/2021 documented as of this encounter (statuses as of 06/04/2024) Medications Medication Sig Dispensed Refills Start Date [...] as of this encounter (statuses as of 06/04/2024) Active Problems Problem Noted Date Diagnosed Date 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 Essential hypertension 05/11/2024 HTN (hypertension) 05/11/2024 documented as of this encounter (statuses as of 06/04/2024) Resolved Problems Problem Noted Date Diagnosed Date Resolved Date Sciatica 05/11/2024 05/11/2024 Sprain of neck 05/11/2024 05/11/2024 Chronic low back pain 10/10/20162023 Acquired trigger finger 09/14/2016 07/0 11/2023 Localized adiposity of abdomen 03/26/2016 05/11/2024 documented as of this encounter (statuses as of 06/04/2024) Immunizations Name Administration Dates Next Due Pneumococcal [...] 05/18/2025 10:20 AM EDT Office Visit Family [facility] [address] [place] [address] Roland Lopez MD [address] [place] [address] Pending Results Name Type Priority Associated Diagnoses Date /Time LIPID PANEL WITH DIRECT LDL IF TG IS HIGH Lab Routine Mixed dyslipidemia 06/04/2024 9:47 AM EDT COMPREHENSIVE METABOLIC PANEL Lab Routine Essential hypertension 06/04/2024 9:47 AM EDT CBC Lab Routine Essential hypertension 06/04/2024 9:47 AM EDT ALBUMIN / CREATININE RATIO, URINE Lab Routine Essential hypertension 06/04/2024 9:47 AM EDT Health Maintenance Due Date Last Done Comments Albumin/Creatinine Ratio 1969 Cologuard 1996 Fecal Occult Blood Test 1996 Sigmoidoscopy 1996 GFR 07/15/2023 07/15/2022, 01/2022, 07/13/2022, Additional history exists Influenza Vaccine (FLU shot) (#1) 2024 07/27/2023 Mammogram 11/20/2024 11/20/2023 (Done elsewhere), 10/14/2023, 12/12/2020, Additional history exists Depression Screening 05/11/2025 05/11/2024 [...] as of this encounter Visit Diagnoses Diagnosis Mixed dyslipidemia Mixed hyperlipidemia Essential hypertension Unspecified essential hypertension documented in this encounter Care Teams Lead Simulation Modeling Engineer Relationship Specialty Start Date End Date Roland Lopez MD [address] [place] [address] PCP - General Family Medicine 05/11/24 documented as of this encounter
--- OUTSIDE RECORDS SUMMARY | 2024-10-03 19:49 | External Medical Summary ---
Author Name Unknown Address Unknown Organization [id number]:[facility] [place] [address] [place] [address] Laboratory Report Ordering Provider Test Date Status BEATRICE RENDON 06/04/2024 09:47:58 Final Observation Date Value Abnormality Reference (Units ) Status WBC, Total 06/04/2024 09:47:58 5.10 4.00-10.8 0 (K/uL) Final RBC 06/04/2024 09:47:58 4.41 3.85-5.15 (M/uL) Final Hemoglobin 06/04/2024 09:47:58 14.1 12.0-15.3 (g/dL) Final HCT 06/04/2024 09:47:58 42.3 36.0-45.2 (%) Final MCV 06/04/2024 09:47:58 95.9 81.5-97.5 (fL) Final MCH 06/04/2024 09:47:58 32.0 27.0-34.0 (pg) Final MCHC 06/04/2024 09:47:58 33.3 32.0-36.0 (g/dL) Final RDW 06/04/2024 09:47:58 12.8 11.5-15.5 (%) Final Platelets 06/04/2024 09:47:58 274 140-400 (K /uL) Final MPV 06/04/2024 09:47:58 9.0 6.6-11.1 ( fL) Final Performing Location [facility] [address] [place] [address]
--- OUTSIDE RECORDS SUMMARY | 2024-10-03 19:49 | External Medical Summary | Summary of Care ---
Author Name Unknown Organization [facility] Address [address] [facility] [place] [address] Phone [phone] Care Team Providers Care Transport Engineer Name Role Phone Roland Lopez MD Primary Care Provider Reason for Visit * Reason Onset Date Comments Test Results 06/17/2024 Labs from 024 Encounter Details Date Type Department Care Team (Late st Contact Info) Description 06/17/2024 Telephone Family Practice [facility] [address] [place] [address] Roland Lopez MD [address] [place] [address] Test Results (Labs from 06/04/2024) Allergies Active Allergy Reactions Criticality Noted Date Comments Penicillins Rash 05/22/2021 Sulfa Antibiotics 05/22/2021 documented as of this encounter (statuses as of 09/16/2024) Medications Medication Sig Dispensed Refills Start Date [...] as of this encounter (statuses as of 09/16/2024) Active Problems Problem Noted Date Diagnosed Date 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 Essential hypertension 05/11/2024 HTN (hypertension) 05/11/2024 documented as of this encounter (statuses as of 09/16/2024) Resolved Problems Problem Noted Date Diagnosed Date Resolved Date Sciatica 05/11/2024 05/11/2024 Sprain of neck 05/11/2024 05/11/2024 Chronic low back pain 10/10/20162023 Acquired trigger finger 09/14/2016 07/0 11/2023 Localized adiposity of abdomen 03/26/2016 05/11/2024 documented as of this encounter (statuses as of 09/16/2024) Immunizations Name Administration Dates Next Due Pneumococcal [...] encounter Miscellaneous Notes * Telephone Encounter - Yaritza Mata OSA - 06/17/2024 8:47 AM EDT Who is Requesting Test Results: Patient Primary Care Provider : Roland Lopze MD Tests Results Requested : All from 06/04/24 Date of Test : 06/04/2024 Location of Test: [facility] [place] Ordering Provider: Dr. Lopez [phone] Patient has been made aware that the turnaround time for test results are typically as follows: Laboratory results = within 2-3 days ([facility]), 3-5 days (Non[facility], ie. [facility]) Urine Cultures = within 2-3 days depending on growth within the culture Pathology results (biopsy results/PAP) = 1-2 weeks Radiology results = about 1 week Cologuard results = within 2 weeks from the shipment date COVID testing = about 24 hours documented in this encounter Plan of Treatment Upcoming Encounters Date Type Department Care Team (Late st Contact Info) Description 05/18/2025 10:20 AM EDT Office Visit Family Practice [facility] [address] [place] [address] Roland Lopez MD [address] [place] [address] Health Maintenance Due Date Last Done Comments Cologuard 1996 Fecal Occult Blood Test 1996 Sigmoidoscopy 1996 Adult Wellness Visit 2017 Influenza Vaccine (FLU shot) (#1) 2024 07/27/2023 Mammogram 11/20/2024 11/20/2023 (Done elsewhere), 10/14/2023, 12/12/2020, Additional history exists Depression Screening 05/11/2025 05/11/2024 GFR 06/04/2025 06/04/2024, 09/0 02/2022, 07/14/2022, Additional history exists DXA Scan 12/16/2025 12/16/2018 Albumin/Creatinine Ratio 06/04/2027 06/04/2024 Lipid Panel 06/04/2029 06/04/2024, 04/12, 12/15/2019 DTap/Tdap Vaccines (2 - Td or Tdap) 07/05/2031 [...] filedocumented as of this encounter Care Teams Transport Engineer Relationship Specialty Start Date End Date Roland Lopez MD [facility] [address] [place] [address] PCP - General Family Medicine 05/11/24 documented as of this encounter
--- OUTSIDE RECORDS SUMMARY | 2024-10-03 19:49 | External Medical Summary | Summary of Care ---
Author Name Unknown Organization [facility] Address [address] [facility] [place] [address] Phone [phone] Care Team Providers Care Cloth Finisher Name Role Phone Roland Lopez MD Primary Care Provider Encounter Details Date Type Department Care Team (Late st Contact Info) Description 06/01/2024 Orders Only Family Practice [facility] [address] [place] [address] Roland Lopez MD [address] [place] [address] Allergies Active Allergy Reactions Criticality Noted Date [...] 05/18/2025 10:20 AM EDT Office Visit Family [address] [place] [address] Roland Lopez MD [address] [place] [address] Health Maintenance Due Date Last Done Comments [...] Associated Diagnosis Comments MAMMOGRAM SCREENING BILATERAL Routine 03/29/2020 MAMMOGRAM SCREENING BILATERAL Routine 12/16/2018 documented in this encounter Results * MAMMOGRAM SCREENING BILATERAL (03/29/2020) Anatomical Region Laterality Modality Breast Bilateral Other 03/29/2020 History Per Patient RAD MAMMOGRAPHY * MAMMOGRAM SCREENING BILATERAL (12/16/2018) Anatomical Region Laterality Modality Breast Bilateral Other 12/16/2018 History Per Patient RAD MAMMOGRAPHY documented in this encounter Care Teams Cloth Finisher Relationship Specialty Start Date End Date Roland Lopez MD [address] [facility] [place] [address] PCP - General Family Medicine 05/11/24 documented as of this encounter
--- OUTSIDE RECORDS SUMMARY | 2024-10-03 19:49 | External Medical Summary | Summary of Care ---
Author Name Unknown Organization [facility] Address [address] [facility] [place] [address] Phone [phone] Care Team Providers Care Crane Assembler Name Role Phone Roland Lopez MD Primary Care Provider Encounter Details Date Type Department Care Team (Late st Contact Info) Description 06/01/2024 Orders Only Family Practice [facility] [address] [place] [address] Roland Lopez MD [address] [place] [address] Allergies Active Allergy Reactions Criticality Noted Date [...] 05/18/2025 10:20 AM EDT Office Visit Family [address] [place] [address] Roland Lopez MD [address] [place] [address] Health Maintenance Due Date Last Done Comments [...] Name Priority Date/Time Associated Diagnosis Comments MAMMOGRAM DIAGNOSTIC RIGHT Routine 12/12/2020 documented in this encounter Results * MAMMOGRAM DIAGNOSTIC RIGHT (12/12/2020) Anatomical Region Laterality Modality Breast Right Other 12/12/2020 History Per Patient RAD MAMMOGRAPHY documented in this encounter Care Teams Crane Assembler Relationship Specialty Start Date End Date Roland Lopez MD [address] [place] [address] PCP - General Family Medicine 05/11/24 documented as of this encounter
--- OUTSIDE RECORDS SUMMARY | 2024-10-03 19:49 | External Medical Summary | Summary of Care ---
Author Name Unknown Organization [facility] Address [address] [facility] [address] Phone [phone] Care Team Providers Care Oracle Hrms Developer Name Role Phone Roland Lopez MD Primary Care Provider Reason for Visit * Reason Onset Date Comments Health Maintenance 05/21/2024 Encounter Details Date Type Department Care Team (Late st Contact Info) Description 05/21/2024 Telephone Family Practice [facility] [address] [place] [address] Roland Lopez MD [address] [place] [address] Health Maintenance Allergies Active Allergy Reactions Criticality [...] Depression Screening 05/11/2025 DXA Scan 12/16/2025 Ov year May? Labs already ordered Care Gap Outreach Action Taken: Left message 1 documented in this encounter Plan of Treatment Health Maintenance [...] filedocumented as of this encounter Care Teams Oracle Hrms Developer Relationship Specialty Start Date End Date Roland Lopez MD [address] [place] [address] PCP - General Family Medicine 05/11/24 documented as of this encounter
--- OUTSIDE RECORDS SUMMARY | 2024-10-03 19:49 | External Medical Summary ---
Author Name Unknown Address Unknown Organization K0G:[facility] [place] [address] [place] [address] Laboratory Report Ordering Provider Test Date Status BEATRICE RENDON 06/04/2024 09:47:58 Final Observation Date Value Abnormality Reference (Units ) Status BUN 06/04/2024 09:47:58 19 6-20 (mg/dL) Final Creatinine 06/04/2024 09:47:58 0.8 0.5-1.0 (mg/dL) Final Glomerular filtration rate/1.73 sq M.predicted [Volume Rate/Area] in Serum, Plasma or Blood by Creatinine-based formula (CKD-EPI) 06/04/2024 09:47:58 77 >=60 (mL/min) Final eGFR is calculated based on the CKD-EPI 2020 equation. Sodium 06/04/2024 09:47:58 143 135-146 (m mol/L) Final Potassium 06/04/2024 09:47:58 4.3 3.5-5.1 (m mol/L) Final Cl 06/04/2024 09:47:58 104 98-107 (mm ol/L) Final CO2 06/04/2024 09:47:58 27 22-32 (mmo l/L) Final Anion gap 06/04/2024 09:47:58 12 7-15 (mmol /L) Final Glucose 06/04/2024 09:47:58 87 70-120 (mg /dL) Final Albumin 06/04/2024 09:47:58 4.5 3.8-5.0 (g /dL) Final AST (Aspartate aminotransferase) 06/04/2024 09:47:58 28 10-35 (U/L) Final Alk Phos 06/04/2024 09:47:58 70 35-130 (U/ L) Final Bilirubin, Total 06/04/2024 09:47:58 0.7 <=1 .2 (mg/dL) Final Calcium 06/04/2024 09:47:58 9.7 8.4-10.2 ( mg/dL) Final Protein 06/04/2024 09:47:58 6.7 6.0-8.3 (g /dL) Final ALT (Alanine aminotransferase) 06/04/2024 09:47:58 26 10-35 (U/L) Final Performing Location [facility] [place] [address] [facility] [address]
--- OUTSIDE RECORDS SUMMARY | 2024-10-03 19:49 | External Medical Summary ---
Author Name Unknown Address Unknown Organization [id number]:LABORATORY [facility] [place] - [address] [facility] [place] [address] Laboratory Report Ordering Provider Test Date Status BEATRICE RENDON 06/04/2024 09:47:58 Final Observation Date Value Abnormality Reference (Units ) Status Triglyceride 06/04/2024 09:47:58 151 <=174 ( mg/dL) Final Triglyceride Reference Range s (mg/dL):
<150 Acceptable
150-174 Borderline high
175-499 High
>=500 Very high Cholesterol 06/04/2024 09:47:58 218 Above high normal <200 (mg/dL) Final Total Cholesterol Reference Ranges (mg/dL):
<200 Desirable
200-239 Borderline high
>=240 High HDL 06/04/2024 09:47:58 60 >49 (mg/dL ) Final HDL Cholesterol Reference Ra nges (mg/dL):
>=60 High (Desirable)
<50 Low (Undesirable) For Females
<40 Low (Undesirable) For Males NON-HDL CHOLESTEROL 06/04/2024 09:47:58 158 <=159 (mg/dL) Final Non-HDL Cholesterol Referenc e Range (mg/dL):
<100 Target level for high risk ASCVD patient
<130 Optimal for general population
130-159 Near optimal for general population
160-189 Borderline High
190-219 High
>=220 Very High LDL, (calculated) 06/04/2024 09:47:58 128 <= 129 (mg/dL) Final LDL Cholesterol Reference Ra nges (mg/dL):
<70 Target level for high risk ASCVD patient
<100 Optimal for general population
100-129 Near optimal for general population
130-159 Borderline high
160-189 High
>=190 Very high Performing Location LABORATORY [facility] - [address] [place] [address]
[2024-10-03] MEDS: THIAMINE HCL 200 MG in SODIUM CHLORIDE 0.9% 50 ML IV ONE (20:15)
[2024-10-03] MEDS ORDERED: ACETAMINOPHEN 325 MG TAB PO PRN (21:02)
[2024-10-03] MEDS ORDERED: AMPICILLIN/SULBACTAM SOD 1,500 MG/100 ML BAG IV SCH (21:02)
[2024-10-03] MEDS: ADVANCED PROBIOTIC 625 MG CAPSULE PO SCH (22:01)
[2024-10-03] MEDS: LOSARTAN POTASSIUM 50 MG TAB PO SCH (22:02)
[2024-10-03] MEDS: guaiFENesin 600 MG TABCR PO SCH (22:03)
[2024-10-03] MEDS: MELATONIN 3 MG TAB PO SCH (22:31)
[2024-10-03] MEDS: LORazepam 1 MG TAB PO SCH (22:31)
[2024-10-04] MEDS: AMPICILLIN/SULBACTAM SOD 3,000 MG/100 ML BAG IV SCH
[2024-10-04] MEDS ORDERED: COUGH DROP (SUGAR FREE) LOZ 24 LOZ/1 BOX BUCCAL PRN (02:31)
[2024-10-04] MEDS: ENOXAPARIN INJ 40 MG/0.4 ML SYR SQ SCH (08:20)
[2024-10-04] MEDS: THIAMINE HCL 200 MG in SODIUM CHLORIDE 0.9% 50 ML IV SCH (08:20)
[2024-10-04] MEDS: ASPIRIN 81 MG ECTAB PO SCH (08:21)
[2024-10-04] MEDS: guaiFENesin/CODEINE 100MG/10MG 5ML UDC PO STA (08:23)
[2024-10-04] MEDS: BENZONATATE 100 MG CAPSULE PO SCH (08:23)
--- NOTE | 2024-10-04 11:01 | XCELERA ---
[id number] \\[email or web address]\[id number]
[2024-10-04 11:08] LABS: BUN Creatinine Ratio 20.8 (10-20); Calcium 9.3 mg/dl (8.6-10.3); Chol HDL Ratio 2.9 (0-5); Potassium 3.9 mmol/L (3.5-5.1)
[2024-10-04 11:16] LABS: Estimated Average Glucose 114 mg/dl; Hemoglobin A1C 5.6 % (4.5-5.6)
[2024-10-04 11:19] VITALS: BP 123/78; RESP 20; TEMP 97.9; O2SAT 94
--- NOTE | 2024-10-04 12:28 | Neurology Consultation ---
Date of Consultation October 04, 2024 Assessment & Plan (1) TGA (transient global amnesia): Transient global amnesia, close the presentation MRI of the brain was reviewed independently no significant white matter changes, no temporal lobe changes, no acute infarcts. CTA with no significant atherosclerotic disease Echocardiogram is unremarkable with preserved ejection fraction Suspect that this occurred in the setting of global hypoperfusion with temporal lobe dysfunction, vasovagal event plus infection (2) Occipital neuralgia: The patient reports chronic nerve pain in the back of her head Plan Recommend a Zio patch as an outpatient. Rule out arrhythmias contributing to hypoperfusion. The patient was advised to cut down on , daily alcohol consumption Okay with aspirin 81 mg, low-dose statin, the patient is to decide with her primary care doctor if this needs to be continued her levels are okay and no evidence of atherosclerotic disease. Refer to neurology for greater occipital nerve block. Follow-up with neurology as outpatient Okay for discharge from neurology standpoint Telehealth Consultation Telehealth Information Telehealth Information: I performed this visit using a real-time telehealth connection between my location and the patients location ([facility]). After connecting through interactive tele-video, patient was identified by name and date of and/or wristband check.Patient (or authorized healthcare high school admissions representative) was informed that this was a telemedicine visit and it was being conducted confidentially over secure lines. My office door was closed and no one else was present in the room with me.Patient (or authorized healthcare high school admissions representative) provided consent to proceed with the visit, expressed an understanding of privacy and security of the telemedicine visit, and gave permission to have a hospital high school admissions representative in the room in order to assist with the visit and to conduct portions of the visit, as needed. I informed the patient (or authorized healthcare high school admissions representative) that I reviewed their record and presented the opportunity for them to ask any questions regarding the visit today. The patient agreed to participate. 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 She has been having cough and expectoration since she was on antibiotics about then, has been having bouts of golf where she would become nauseous the 2 days before the event. The day of the event she is going to a restaurant to have dinner with family, during the dinner she noticed that she does not remember anything about what happened earlier in the day. She kept asking the same questions over and over again, the describes that it was a loop conversation where she would ask the same question. She did not have any dizziness any numbness or weakness denies any gait abnormality or visual blurring, denies any chest pain or shortness of breath she did not have any physical symptoms according to her. She tells me that she had a similar event about 3 years ago in 2020 that happened while she had an infection was on doxycycline. She she drinks 1 or 2 drinks at night on daily basis has been on that for a long time. Allergies Allergy/AdvReac Type Severity Reaction Status Date / Time bee venom protein (honey bee) Allergy Severe Inner Ear Unverified 03/11/24 09:50 Problems/Dizziness doxycycline Allergy Unknown Verified 03/11/24 09:50 Penicillins Allergy Unknown Rash Verified 03/11/24 09:50 Sulfa (Sulfonamide Allergy Unknown Verified 03/11/24 09:50 Antibiotics) Home Medications Medication Instructions Recorded Confirmed Type epinephrine 0.3 mg/0.3 mL 0.3 mg IM ONCE PRN Allergic 10/03/21 10/03/24 History injection, auto-injector Reactions losartan 50 mg tablet 50 mg PO BID 10/22/23 10/03/24 History meloxicam 15 mg tablet 15 mg PO DAILY PRN Pain 03/11/24 10/03/24 History amoxicillin 875 mg-potassium 1 tab PO BID 10/03/24 10/03/24 History clavulanate 125 mg tablet L.acidop,casei,lactis,rham-B.lact,gisel 1 cap PO DAILY #30 caps 10/04/24 Rx 625 mg (10 billion cell) capsule (Advanced Probiotic) aspirin 81 mg tablet,delayed 81 mg PO QAM #30 tabs 10/04/24 Rx release atorvastatin 10 mg tablet 10 mg PO HS #30 tabs 10/04/24 Rx benzonatate 100 mg capsule 100 mg PO TID PRN cough #30 caps 10/04/24 Rx codeine 10 mg-guaifenesin 100 mg/5 5 ml PO Q6H PRN flu symptoms #118 10/04/24 Rx mL oral liquid (Guaifenesin AC) mL lorazepam 1 mg tablet 0.5 mg (1/2 x 1 mg) PO HS 10 days 10/04/24 Rx #5 tabs melatonin 3 mg tablet 3 mg PO HS 30 days #30 tabs 10/04/24 Rx Patient History Medical History (Updated 10/04/24 @ 12:26 by Malgorzata Russell MD) SVT (supraventricular tachycardia) Aneurysm, ascending aorta TIA (transient ischemic attack) Surgical History History of bowel resection S/P removal of parathyroid gland Family History Mother Dementia Neuropathy Father Afib Sister Seizure Social History Smoking Status: Never smoker Second Hand Exposure: No; Do You Dip or Chew Tobacco: No; Tobacco Cessation Education Requested by Patient: No Hx Alcohol Use: Yes Alcohol type: wine Alcohol Intake Frequency Comment: "occasionally" Hx Substance Use: No Preferred Language: [place] Islander Communication Ability: Effective Code Enforcement Supervisor Required: No Beliefs That Will Affect Care: None marital status: Current Living Situation: Spouse Other Information That Helps Us Care for You: No Feels Safe at Home: Yes Safety Concerns: Feels Safe At This Time Assistive Devices: None Review of Systems Constitutional: Patient denies weight loss, fever, chills, and night sweats Eyes: Patient denies change in vision, tearing, pain, and redness ENT: Patient denies pain, bleeding, rhinorrhea, and dysphagia Cardiovascular: Patient denies chest pain, palpitation, dyspnea at rest, and dyspnea with exertion Respiratory: Patient denies shortness of breath, +++cough, wheezing, and productive cough GI: Patient denies reflux, pain, constipation, and diarrhea,+++ nausea Skin: Patient denies rash, dryness, and itching Allergies/Immune System: Patient denies rhinorrhea, seasonal allergies, reaction to current MEDS, and joint swelling Endocrine: Patient denies weight loss, weight gain, temperature intolerance, and excessive thirst Neurological: All negative unless mentioned in the HPI Physical Exam General Constitutional: Appearance normally developed Head and face: normocephalic and atraumatic Eyes: no ptosis, no anisocoria, and no dysconjugate gaze Respiratory: normal effort Cardiovascular: regular rhythm and regular rate Abdomen: non distended Skin: no rashes, lesions, or ulcers noted Psychiatric: normal judgement and insight, normal mood, and normal affect NEUROLOGIC EXAMINATION: Mental Status:alert, oriented to time, place, person, normal recent memory, normal remote memory, normal attention span, normal concentration, normal language and normal fund of knowledge Cranial Nerves: CN 2 - no visual defect on confrontation and pupils round, equal, reactive to light CN 3, 4, 6 - extra-ocular movements intact and no nystagmus CN 5 - facial sensation intact CN 7 - no facial asymmetry CN 8 - intact hearing CN 9, 10 - palate symmetric, normal gag CN 11 - good shoulder shrug CN 12 - tongue midline MOTOR: Strength was at least antigravity throughout, Pronator drift was absent and There were no abnormal movements SENSATION: intact and symmetric to pinprick, light touch, vibration and joint position GAIT: stable, no ataxia and can perform tandem walking COORDINATION: no ataxia with finger to nose testing and heel to aguila testing REFLEXES: cannot assess over telemedicine NIH Stroke Scale: 1a. Level of Consciousness: alert = 0 1b. LOC Questions: (month, age): both correct = 0 1c. LOC Commands (open and close eyes, make fist and let go using non-paretic hand): obeys both correctly = 0 2. Best Gaze (eyes open and patient follows examiner's finger or face): normal = 0 3. Visual (visual threat or finger counting in each quadrant): no loss = 0 4. Facial Palsy (show teeth, raise eye brows and squeeze eyes shut, or grimace symmetry in a comatose patient): normal = 0 5a. Motor Arm (extend arm (palms down) to 90 degrees and score drift/movement (10 seconds) - Left: no drift = 0 5b. Motor Arm: (extend arm (palms down) to 90 degrees and score drift/movement (10 seconds) - Right: no drift = 0 6a. Motor Leg (elevate leg 30 degrees and score drift/ movement (5 seconds) - Left: no drift = 0 6b. Motor Leg (elevate leg 30 degrees and score drift/ movement (5 seconds) - Right: no drift = 0 7. Limb Ataxia (finger to nose, heel down aguila): absent = 0 8. Sensory (pin prick to face, arm, trunk and leg, compare side to side): normal = 0 9. Best Language: no aphasia = 0 10. Dysarthria (evaluate speech clarity by patient repeating listed words): normal articulation = 0 11. Extinction and Inattention: no neglect = 0 Total: 0 Results & Data Vital Signs (Past 12 Hours) Vital Signs Temp Pulse Pulse Resp BP Pulse Ox O2 Del Method 10/04/24 11:18 36.6 C 75 20 123/78 94 Room Air 10/04/24 07:43 Room Air 10/04/24 07:18 36.5 C 64 18 132/85 92 Room Air 10/04/24 07:16 64 10/04/24 03:04 36.6 C 90 18 175/93 H 94 Room Air Laboratory Results Laboratory Results - last 24 hr 10/03/24 10/03/24 10/03/24 14:27 14:29 14:32 WBC 8.24 RBC 4.40 Hgb 14.3 POC Hgb 14.6 Hct 42.1 POC Hct 43 MCV 95.7 MCH 32.5 MCHC 34.0 RDW Std Deviation 42.6 RDW Coeff of [place]ly[place] 12.0 Plt Count 287 MPV 8.6 L Immature Gran % (Auto) 0.4 Neut % (Auto) 65.7 Lymph % (Auto) 23.2 Christian % (Auto) 8.9 Eos % (Auto) 1.3 Baso % (Auto) 0.5 Neut # (Auto) 5.42 Lymph # (Auto) 1.91 Christian # (Auto) 0.73 H Eos # (Auto) 0.11 Baso # (Auto) 0.04 Immature Gran # (Auto) 0.03 PT 10.3 INR 0.9 APTT 34 H PTT Ratio 1.3 POC Sodium 141 Sodium 141 POC Potassium 3.7 Potassium 3.7 POC Chloride 103 Chloride 105 Carbon Dioxide 28 POC Total CO2 24 Anion Gap 8 POC Anion Gap 19.0 POC BUN 24 H BUN 26 H Creatinine 0.78 POC Creatinine 0.8 Est Cr Clr Drug Dosing 65.0 eGFR 80.15 BUN/Creatinine Ratio 33.3 H Glucose 91 POC Glucose 92 POC Glucose (other) 93 Estimat Average Glucose Hemoglobin A1c Calcium 9.4 POC Ioniz Calcium Ton 1.18 Magnesium 1.9 Total Bilirubin 0.6 AST 30 ALT 24 Alkaline Phosphatase 60 Troponin I High Sens 4.5 Total Protein 7.2 Albumin 4.4 Globulin 2.8 Albumin/Globulin Ratio 1.6 Triglycerides Cholesterol LDL Cholesterol, Calc VLDL Cholesterol, Calc HDL Cholesterol Cholesterol/HDL Ratio Vitamin B12 439 Urine Color Urine Appearance Urine pH Ur Specific [place] Urine Protein Urine Glucose (UA) Urine Ketones Urine Blood Urine Nitrite Urine Bilirubin Urine Urobilinogen Ur Leukocyte Esterase Urine WBC (Auto) Urine RBC (Auto) U Hyaline Cast (Auto) U Epithel Cells (Auto) Urine Bacteria (Auto) 10/03/24 10/04/24 10/04/24 15:45 10:34 10:38 WBC RBC Hgb POC Hgb Hct POC Hct MCV MCH MCHC RDW Std Deviation RDW Coeff of E[place] Plt Count MPV Immature Gran % (Auto) Neut % (Auto) Lymph % (Auto) Christian % (Auto) Eos % (Auto) Baso % (Auto) Neut # (Auto) Lymph # (Auto) Christian # (Auto) Eos # (Auto) Baso # (Auto) Immature Gran # (Auto) PT INR APTT PTT Ratio POC Sodium Sodium 140 POC Potassium Potassium 3.9 POC Chloride Chloride 105 Carbon Dioxide 31 POC Total CO2 Anion Gap 4 POC Anion Gap POC BUN BUN 16 Creatinine 0.77 POC Creatinine Est Cr Clr Drug Dosing 65.0 eGFR 81.40 BUN/Creatinine Ratio 20.8 H Glucose 104 H POC Glucose POC Glucose (other) Estimat Average Glucose 114 Hemoglobin A1c 5.6 Calcium 9.3 POC Ioniz Calcium Ton Magnesium Total Bilirubin AST ALT Alkaline Phosphatase Troponin I High Sens Total Protein Albumin Globulin Albumin/Globulin Ratio Triglycerides 65 Cholesterol 157 LDL Cholesterol, Calc 89 VLDL Cholesterol, Calc 13 HDL Cholesterol 55 Cholesterol/HDL Ratio 2.9 Vitamin B12 Urine Color Yellow Urine Appearance Clear Urine pH 6.0 Ur Specific [place] 1.031 H Urine Protein Negative Urine Glucose (UA) Negative Urine Ketones Trace H Urine Blood 2+ H Urine Nitrite Negative Urine Bilirubin Negative Urine Urobilinogen Negative Ur Leukocyte Esterase Negative Urine WBC (Auto) 0-5 Urine RBC (Auto) >20 H U Hyaline Cast (Auto) 0-2 U Epithel Cells (Auto) 0-2 Urine Bacteria (Auto) None Seen Diagnostic Findings Chest X-Ray 10/03/24 14:26 EXAM: Radiograph of the Chest 1 View INDICATION: Stroke alert TECHNIQUE: Frontal view of the chest. COMPARISON: 11/15/2021 FINDINGS: Lungs and pleural spaces: No consolidation or pulmonary edema. No pleural effusion or pneumothorax. Heart: Shape and configuration within normal limits allowing for technique. Mediastinum: Normal contour. Bones/joints: No fracture, erosion or dislocation. Soft tissues: No abnormality noted. No radiopaque foreign body noted. Vasculature: Stable ectatic aorta. Upper abdomen: No abnormality noted. IMPRESSION: No acute cardiopulmonary disease. ACT 112: Negative or not required by law. Electronically signed by Natasha Fry 10-03-2024 3:[address] 10/03/24 14:26 EXAM: CT Head Without Intravenous Contrast INDICATION: Stroke alert TECHNIQUE: Axial computed tomography images of the head/brain without intravenous contrast. Sagittal and/or coronal reformats are provided. Sagittal and coronal reformatted images were created and reviewed. This CT exam was performed using one or more of the following dose reduction techniques: automated exposure control, adjustment of the mA and/or kV according to patient size, and/or use of iterative reconstruction technique. COMPARISON: No relevant prior studies available. FINDINGS: Limitations: None. Brain and extra-axial spaces: No abnormality noted. No hemorrhage. No significant white matter disease. No edema. No ventriculomegaly. Bones/joints: No acute changes. Soft tissues: No significant abnormality noted. Vasculature: No acute abnormality noted. Sinuses: No layering fluid in the visualized portions of the paranasal sinuses. Mastoid air cells: No mastoid effusion. Orbits: No significant abnormality noted. IMPRESSION: No abnormality noted. Findings phoned to the charge nurse at 2:50 PM 10/03/2024. ACT 112: Negative or not required by law. Electronically signed by Natasha Fry 10-03-2024 2:54 PM Head CTA 10/03/24 14:26 EXAM: CT Angiography Head and Neck With Intravenous Contrast INDICATION: Stroke alert. Short-term memory loss. Confusion. TECHNIQUE: [place]/head and neck CT angiography protocol performed with intravenous contrast. Sagittal and coronal reformatted images were created and reviewed. This CT exam was performed using one or more of the following dose reduction techniques: automated exposure control, adjustment of the mA and/or kV according to patient size, and/or use of iterative reconstruction technique. MIP reconstructed images were created and reviewed. CONTRAST: 120ml of Optiray 320 was administered intravenously. COMPARISON: None. FINDINGS: HEAD: Right anterior cerebral artery: No abnormality noted. No occlusion or significant stenosis. Anterior communicating artery is present. No aneurysm. Right middle cerebral artery: No abnormality noted. No occlusion or significant stenosis. No aneurysm. Right posterior cerebral artery: No abnormality noted. No occlusion or significant stenosis. No aneurysm. Right intracranial internal carotid artery: Very minimal calcific plaque in the intracranial right internal carotid artery. No stenosis, aneurysm or dissection. Right intracranial vertebral artery: No abnormality noted. No significant stenosis. No dissection or occlusion. Left anterior cerebral artery: No abnormality noted. No occlusion or significant stenosis. No aneurysm. Left middle cerebral artery: No abnormality noted. No occlusion or significant stenosis. No aneurysm. Left posterior cerebral artery: No abnormality noted. No occlusion or significant stenosis. No aneurysm. Left intracranial internal carotid artery: Very minimal calcific plaque in the intracranial left internal carotid artery. No stenosis, aneurysm or dissection. Left intracranial vertebral artery: No abnormality noted. No significant stenosis. No dissection or occlusion. Basilar artery: No abnormality noted. No occlusion or significant stenosis. No aneurysm. Other vasculature: No vascular malformation. NECK: Right common carotid artery: No abnormality noted. No significant stenosis. No dissection or occlusion. Right extracranial internal carotid artery: No abnormality noted. No significant stenosis. No dissection or occlusion. Right external carotid artery: No abnormality noted. No occlusion. Right extracranial vertebral artery: No abnormality noted. No significant stenosis. No dissection or occlusion. Left common carotid artery: No abnormality noted. No significant stenosis. No dissection or occlusion. Left extracranial internal carotid artery: No abnormality noted. No significant stenosis. No dissection or occlusion. Left external carotid artery: No abnormality noted. No occlusion. Left extracranial vertebral artery: No abnormality noted. No significant stenosis. No dissection or occlusion. Lung apices: No significant abnormality noted. HEAD and NECK: Bones/joints: There is mild spondylosis and uncal spurring with associated foraminal mild ventral canal stenosis at C6-C7. No acute osseous abnormality. Soft tissues: No abnormality noted. CAROTID STENOSIS REFERENCE USING NASCET CRITERIA: % ICA stenosis = (1 - narrowest ICA diameter/diameter of distal cervical ICA) x 100. Mild - <50% stenosis. Moderate - 50-69% stenosis. Severe - 70-94% stenosis. Near occlusion - 95-99% stenosis. Occluded - 100% stenosis. IMPRESSION: No angiographic abnormality in the head or neck. ACT 112: Negative or not required by law. Electronically signed by Natasha Fry 10-03-2024 2:57 PM Neck CTA 10/03/24 14:26 EXAM: CT Angiography Head and Neck With Intravenous Contrast INDICATION: Stroke alert. Short-term memory loss. Confusion. TECHNIQUE: [place]/head and neck CT angiography protocol performed with intravenous contrast. Sagittal and coronal reformatted images were created and reviewed. This CT exam was performed using one or more of the following dose reduction techniques: automated exposure control, adjustment of the mA and/or kV according to patient size, and/or use of iterative reconstruction technique. MIP reconstructed images were created and reviewed. CONTRAST: 120ml of Optiray 320 was administered intravenously. COMPARISON: None. FINDINGS: HEAD: Right anterior cerebral artery: No abnormality noted. No occlusion or significant stenosis. Anterior communicating artery is present. No aneurysm. Right middle cerebral artery: No abnormality noted. No occlusion or significant stenosis. No aneurysm. Right posterior cerebral artery: No abnormality noted. No occlusion or significant stenosis. No aneurysm. Right intracranial internal carotid artery: Very minimal calcific plaque in the intracranial right internal carotid artery. No stenosis, aneurysm or dissection. Right intracranial vertebral artery: No abnormality noted. No significant stenosis. No dissection or occlusion. Left anterior cerebral artery: No abnormality noted. No occlusion or significant stenosis. No aneurysm. Left middle cerebral artery: No abnormality noted. No occlusion or significant stenosis. No aneurysm. Left posterior cerebral artery: No abnormality noted. No occlusion or significant stenosis. No aneurysm. Left intracranial internal carotid artery: Very minimal calcific plaque in the intracranial left internal carotid artery. No stenosis, aneurysm or dissection. Left intracranial vertebral artery: No abnormality noted. No significant stenosis. No dissection or occlusion. Basilar artery: No abnormality noted. No occlusion or significant stenosis. No aneurysm. Other vasculature: No vascular malformation. NECK: Right common carotid artery: No abnormality noted. No significant stenosis. No dissection or occlusion. Right extracranial internal carotid artery: No abnormality noted. No significant stenosis. No dissection or occlusion. Right external carotid artery: No abnormality noted. No occlusion. Right extracranial vertebral artery: No abnormality noted. No significant stenosis. No dissection or occlusion. Left common carotid artery: No abnormality noted. No significant stenosis. No dissection or occlusion. Left extracranial internal carotid artery: No abnormality noted. No significant stenosis. No dissection or occlusion. Left external carotid artery: No abnormality noted. No occlusion. Left extracranial vertebral artery: No abnormality noted. No significant stenosis. No dissection or occlusion. Lung apices: No significant abnormality noted. HEAD and NECK: Bones/joints: There is mild spondylosis and uncal spurring with associated foraminal mild ventral canal stenosis at C6-C7. No acute osseous abnormality. Soft tissues: No abnormality noted. CAROTID STENOSIS REFERENCE USING NASCET CRITERIA: % ICA stenosis = (1 - narrowest ICA diameter/diameter of distal cervical ICA) x 100. Mild - <50% stenosis. Moderate - 50-69% stenosis. Severe - 70-94% stenosis. Near occlusion - 95-99% stenosis. Occluded - 100% stenosis. IMPRESSION: No angiographic abnormality in the head or neck. ACT 112: Negative or not required by law. Electronically signed by Natasha Fry 10-03-2024 2:57 PM Brain MRI 10/03/24 15:56 EXAM: MR brain wo/w con CLINICAL HISTORY: 7.5mL Gadavist given existing IV by KYLER, uneventful injection, no complaints from PT, propeller scans were ran due to PT''s inability to stop coughing during scans, PT had confusion earlier today and short term memory loss, no injury to head, no cancer history, PT was a stroke alert earlier today sent to [facility] TECHNIQUE: MRI of the brain was performed with and without intravenous contrast administration (7.5mL Gadavist). COMPARISON: Reviewing CT brain and head angio same day 10/03/2024. FINDINGS: Brain Parenchyma: No recent infarction by DWI No evidence of hemorrhage. Bowen-white matter differentiation is preserved. No abnormal signal intensity lesions were identified. Post-Contrast Findings: No abnormal enhancement of the brain parenchyma or meninges. Ventricles and Sulci: Ventricular system is within normal limits without evidence of hydrocephalus. Sulci and cisternal spaces are age-appropriate. Brainstem and Cerebellum: Normal appearance of the brainstem and cerebellum without focal lesions or abnormal enhancement. Vessels: Intracranial vessels appear normal without evidence of vascular malformations or aneurysms. Skull and Calvarium: No evidence of skull vault lesions or abnormal marrow signal within the calvarium. IMPRESSION: MRI of the brain with and without contrast: 1. Normal brain parenchyma and structures. 2. No evidence of acute intracranial pathology or abnormal contrast enhancement. 3. No changes on interval. Electronically signed by Luca Live 10-03-2024 6:40 PM Echocardiogram: Normal LV function, mild concentric left ventricular hypertrophy, grade 1 diastolic dysfunction, EF 55-60%, normal atrial size, Medications Administered Home Medications Medication Instructions Recorded Confirmed Last Taken epinephrine 0.3 mg/0.3 mL 0.3 mg IM ONCE PRN Allergic 10/03/21 10/03/24 Unknown injection, auto-injector Reactions losartan 50 mg tablet 50 mg PO BID 10/22/23 10/03/24 03/11/24 meloxicam 15 mg tablet 15 mg PO DAILY PRN Pain 03/11/24 10/03/24 Unknown amoxicillin 875 mg-potassium 1 tab PO BID 10/03/24 10/03/24 Unknown clavulanate 125 mg tablet L.acidop,casei,lactis,rham-B.lact,gisel 1 cap PO DAILY #30 caps 10/04/24 Unknown 625 mg (10 billion cell) capsule (Advanced Probiotic) aspirin 81 mg tablet,delayed 81 mg PO QAM #30 tabs 10/04/24 Unknown release atorvastatin 10 mg tablet 10 mg PO HS #30 tabs 10/04/24 Unknown benzonatate 100 mg capsule 100 mg PO TID PRN cough #30 caps 10/04/24 Unknown codeine 10 mg-guaifenesin 100 mg/5 5 ml PO Q6H PRN flu symptoms #118 10/04/24 Unknown mL oral liquid (Guaifenesin AC) mL lorazepam 1 mg tablet 0.5 mg (1/2 x 1 mg) PO HS 10 days 10/04/24 Unknown #5 tabs melatonin 3 mg tablet 3 mg PO HS 30 days #30 tabs 10/04/24 Unknown Active Medications Generic Name Dose Route Start Last Admin Trade Name Freq PRN Reason Stop Dose Admin Aspirin 81 mg 10/04/24 09:00 10/04/24 08:21 Aspirin 81 Mg Ectab PO 11/03/24 08:59 81 mg QAM [facility] Administration Benzonatate 100 mg 10/04/24 09:00 10/04/24 08:23 Benzonatate 100 Mg Capsule PO 11/03/24 08:59 100 mg TID [facility]AC Administration Enoxaparin Sodium 40 mg 10/04/24 09:00 10/04/24 08:27 Enoxaparin Inj 40 Mg/0.4 Ml Syr SQ 11/03/24 08:59 Not Given QAM ISSAC Guaifenesin 600 mg 10/03/24 21:02 10/04/24 09:56 Guaifenesin 600 Mg Tabcr PO 11/02/24 21:01 600 mg Q12 [facility] Administration Thiamine HCl 200 mg/ Sodium 52 mls @ 210 mls/hr 10/04/24 09:00 10/04/24 09:56 Chloride IV 10/05/24 05:59 Infused QAM [facility] Infusion Ampicillin Sodium/Sulbactam Sodium 3,000 mg in 100 mls @ 200 mls/hr 10/03/24 21:30 10/04/24 08:22 Unasyn IV 10/08/24 21:29 Not Given Q6H [facility]AC Protocol Lactobacillus Acidophilus 1,250 mg 10/03/24 21:02 10/04/24 08:23 Advanced Probiotic 625 Mg Capsule PO 11/02/24 21:01 1,250 mg DAILY [facility] Administration Lorazepam 1 mg 10/03/24 21:02 10/03/24 22:31 Lorazepam 1 Mg Tab PO 11/02/24 21:01 Not Given HS ISSAC Losartan Potassium 50 mg 10/03/24 21:02 10/04/24 08:23 Losartan Potassium 50 Mg Tab PO 11/02/24 21:01 50 mg BID [facility] Administration Melatonin 3 mg 10/03/24 21:02 10/03/24 22:31 Melatonin 3 Mg Tab PO 11/02/24 21:01 Not Given HS ISSAC
[2024-10-04 13:04] VITALS: PULSE 67
--- NOTE | 2024-10-04 14:26 | Discharge Summary ---
Discharge Summary Date of Service October 04, 2024 Principal Dx & Hospital Course #1 = Principal Diagnosis (1) Amnesia: (2) Essential hypertension: (3) Stroke-like symptom: Plan Ms. Baker is a 74 year old woman with HTN, TIA v global amnesia, and other history as outlined below who presented to the ED today with acute onset of amnesia so stroke alert was called. Initial work-up in the ED including CT head/CTA head and neck was negative. Telestroke evaluation did not recommend TNK. MRI was normal. ECHO stable. No events on telemetry overnight. Neuro evaluated and suspected event likely global transient amnesia. Atorvastatin 10mg recommneded for ldl 89 by neuro, as well as asa 81 mg daily. However, patient with a history of von Willebrand and it is recommended that she discusses risks/benefits with PCP. Neurology also recommended Zio patch and referral for occipital block from PCP. On day of discharge, patient eating well, cough POA was improved with prns and patient discharged to home. #Global transient amnesia #Occipital neuralgia MRI with no significant changes; CTA with no significant atherosclerotic disease Echocardiogram stable Neuro consulted -"Suspect that this occurred in the setting of global hypoperfusion with temporal lobe dysfunction, vasovagal event plus infection" A1C 5.6%, LDL 89, TC 157 Referral from pcp for ZIO and occipital nerve block #Sinusitis POA -continue home abx course -Continue robitussin prn #Insomnia #Acute stress reaction significant stressors at home ativan 0.5mg qhs prn for anxiety/sleep Notes For Next Care Provider Medication Changes From Visit -Atorvastatin 10mg qhs -ASA 81mg daily, if PCP agrees (discussed signs/sx such as gingival bleeding, nose bleeds) -Ativan 0.5mg prn insomnia -Tessalon pearles prn cough -robitussin prn cough Admission HPI Per Admitting Provider This is a 74 y/o female with HTN, prior TIA, and other history as outlined below who presented to the ED today with acute onset of amnesia so stroke alert was called. History obtained from patient and her family as well as from review of outpatient neurology note from 2020. Pt apparently had the abrupt onset of amnesia around 1 pm today. She had gone to visit her father this morning who is on hospice then went out to lunch with friends, but suddenly had no recollection of anything that had happened this morning though was able to recall last night. Initially, her family noted that she also had issues with recalling the events of the last week, but this seems to be improving. She denies any other neurologic symptoms including no JOSHI, dizziness, numbness, tingling, weakness, or dysphagia. She is currently on Augmentin due to recent respiratory illness, which she started two days ago. She had an episode of N/V this morning as well. Of note, in April 2021, pt presented to [facility] with similar symptoms that started after she developed vomiting while on doxycycline for a tick bite. CT head and follow-up MRI were negative for CVA and pt was ultimately diagnosed with TIA. She followed up with neurology outpatient and was originally placed on aspirin but this caused some transient rectal bleeding so was discontinued. She has done well since then until the current episode. ECHO 07/14/21 - LVEF 60-64%, grade I LV diastolic dysfunction, mild TR, mildly enlarged proximal ascending thoracic aorta, no PFO, ASD or interarterial shunt Admission Exam Per Admitting Provider On examination Lying in bed without any acute distress but has significant anxiety Afebrile and hemodynamically stable with blood pressure slight on the upper side at 154/89 Chestclear to auscultate bilaterally HeartS1, S2 regular Abdomenbenign Extremitiesno edema CNSalert, awake and oriented x 3. No focal sensory and motor deficit appreciated Discharge Exam Constitutional WD/WN, vitals as above Respiratory normal respiratory effort, lungs clear to auscultation Cardiovascular RRR, no murmur, no edema Gastrointestinal (Abdomen) normal bowel sounds, soft, nontender, no hepatosplenomegaly Neurologic patellar DTR's 2+ bilat, sensation intact and PERRL, EOMI, accommodation nl, no face palsy, no dysarthria Updated Medication List Medication Instructions Recorded Confirmed Type epinephrine 0.3 mg/0.3 mL 0.3 mg IM ONCE PRN Allergic 10/03/21 10/03/24 History injection, auto-injector Reactions losartan 50 mg tablet 50 mg PO BID 10/22/23 10/03/24 History meloxicam 15 mg tablet 15 mg PO DAILY PRN Pain 03/11/24 10/03/24 History amoxicillin 875 mg-potassium 1 tab PO BID 10/03/24 10/03/24 History clavulanate 125 mg tablet L.acidop,casei,lactis,rham-B.lact,gisel 1 cap PO DAILY #30 caps 10/04/24 Rx 625 mg (10 billion cell) capsule (Advanced Probiotic) aspirin 81 mg tablet,delayed 81 mg PO QAM #30 tabs 10/04/24 Rx release atorvastatin 10 mg tablet 10 mg PO HS #30 tabs 10/04/24 Rx benzonatate 100 mg capsule 100 mg PO TID PRN cough #30 caps 10/04/24 Rx codeine 10 mg-guaifenesin 200 mg/5 5 ml PO Q6H PRN cold symptoms #120 10/04/24 Rx mL oral liquid (Coditussin AC) mL lorazepam 1 mg tablet (Ativan) 1 mg PO HS PRN anxiety #5 tabs 10/04/24 Rx melatonin 3 mg tablet 3 mg PO HS 30 days #30 tabs 10/04/24 Rx Hospital Stay Data Consultations 10/03/24 15:22 ED Decision to Admit Stat 10/03/24 21:02 Consult Neurology Routine Diagnostic Imagining Performed 10/03/24 14:26 CT angio head w con Stat CT angio neck with con Stat CT head/brain wo con Stat 10/03/24 15:56 MRI Brain [MR brain wo/w con] Urgent Pending Results Patient Have Any Pending Studies at Discharge: No Discharge Instructions Given to Patient (Per Discharging Provider) You were admitted for concern of TIA given an episode of amnesia. It is suspected you experienced blood flow disturbance given coughing and infection. Neurology recommended continuing a daily aspirin 81mg and atorvastatin 10mg at bedtime. You can discuss continuing this medication with your PCP given your history of von Willebrand disease. Please keep an eye out for any bleeding of the gums, nose bleeds, or hemorrhoidal bleeding--discontinue aspirin immediately. Neurology also recommended a referral from your PCP for the following: -ZIO patch, which will monitor your heart rates and rhythm while you are home -Occiptal Nerve block which can help with headaches and pain We discussed sleep hygiene and stress You will be sent home with ativan. please take 0.5 mg at bedtime as needed for anxiety related sleep issues. Total Time Total Time Spent Total Time Spent (In Minutes): 45
== END 2024-10-04 14:06 | disposition home or self-care (01) ==
LOC: 2N 14:19 → ED 14:19 → SUATTDRO 15:55 → 2N 20:31